=== PATIENT | female | born 1950 | race Caucasian/White ===

== ENCOUNTER 2016-09-01 22:36 | Inpatient (IN) | payer MEDICARE ==
--- NOTE | ~2016-09-01 | CR72 ---
[facility] A Service of [facility] RADIOLOGY TEXT RESULTS PATIENT: ZARI MTZ LOCATION: [address] : [birth year] UNIT #: [id number] AGE: [address]: Claire Santiago MD SEX: F ORDER DR: [id number] [place] [id number] [facility]. [place], [place] [address] [id number] I MR#: [id number] Acc #: [id number] NAME: ZARI MTZ : 1950 SEX: F STUDY DATE/TIME: 09/05/2016 8:09 UNIT: [facility] ROOM: [facility] STUDY DESCRIPTION: CR Chest Single View Portable Attending Physician: Claire Santiago M.D. Ordering Physician: Physician Non-Staff Primary Care Physician: Juarez Jaffe M.D. MEDICAL IMAGING REPORT This report is preliminary unless electronic signature is present EXAM Portable chest HISTORY Increased shortness of air for three days. DATE: 09/05 COMPARISON: 09/04 FINDINGS A portable view of the chest was obtained. The heart size is within normal limits. There is some minimal atelectasis in the right lower lobe. The central venous catheter is stable. Left lung is clear. IMPRESSION There is some new minimal density in the right lower lobe suggesting atelectasis or infiltrate, otherwise no active disease. Dictated by... Mookie Black M.D. THIS IS AN ELECTRONICALLY VERIFIED REPORT Mookie Black M.D. at 09/05/2016 3:38 PM LEXI/kandace TD: 09/05/2016 08:40 JOB #: [id number] MEDICAL IMAGING REPORT [facility] A Service [facility] RADIOLOGY TEXT RESULTS PATIENT: ZARI MTZ LOCATION: [address] : [birth year] UNIT #: [id number] AGE: [address]: Claire Santiago MD SEX: F ORDER DR: Page 1 of 1 COPY
--- NOTE | ~2016-09-01 | CR72 ---
[facility] A Service of [facility] RADIOLOGY TEXT RESULTS PATIENT: ZARI MTZ LOCATION: [place] [address] : [birth year] UNIT #: [id number] AGE: [address]: Nataliia Petty MD SEX: F ORDER DR: [id number] [facility] [address] [place], [place] [address] [id number] I MR#: [id number] Acc #: [id number] NAME: ZARI MTZ. : 1950 SEX: F STUDY DATE/TIME: 09/03/2016 UNIT: [facility] ROOM: [facility] STUDY DESCRIPTION: CR Chest Single View Portable Attending Physician: Nataliia Petty M.D. Ordering Physician: Jenny Granda M.D. Primary Care Physician: Juarez Jaffe M.D. MEDICAL IMAGING REPORT This report is preliminary unless electronic signature is present EXAM Portable chest 09/03 at 03:22 INDICATIONS Respiratory failure. Ventilator patient. Shortness of air. FINDINGS AP portable chest compared with 09/02/2016. ET tube and right IJ line are in good position. There are developing infiltrates at the left base which could reflect pneumonia. The right lung is clear. No pneumothorax identified. Dictated by... Will Nelson Jr., M.D. THIS IS AN ELECTRONICALLY VERIFIED REPORT Will Nelson Jr., M.D. at 09/03/2016 5:19 PM RULA/kandace TD: 09/03/2016 10:47 JOB #: [id number] MEDICAL IMAGING REPORT Page 1 of 1 COPY
--- NOTE | ~2016-09-01 | DS ---
Unit #: [id number] #: [id number] Patient: ZARI MTZ [id number] [address] [place], [place] [address] [id number] I MR#: [id number] NAME: ZARI MTZ. ROOM: 563 Age: 66 Sex: F Admission Date: 09/02/2016 : 1950 Discharge Date: 09/08/2016 Attending Physician: Claire Santiago M.D. Primary Care Physician: Juarez Jaffe M.D. DISCHARGE SUMMARY REASON FOR ADMISSION Acute hypoxic respiratory failure. HISTORY OF PRESENT ILLNESS/HOSPITAL COURSE Please see H and P for details of initial part of hospital stay secondary to acute hypoxic respiratory failure as well as hypotension and criteria was met for sepsis on admission. Patient was placed in ICU secondary to compromised respiratory status. Patient was subsequently intubated and placed on ventilator and consultation was placed to Dr. Granda and lacy for ongoing management in regards to pulmonary services. Through ICU course, patient was gradually weaned off the ventilator. She was transitioned to BiPAP and subsequently transitioned to O2 via nasal cannula. From a respiratory standpoint, her antibiotics were later discontinued and her IV Solu-Medrol was transitioned to p.o. prednisone. It was noted that patient did have elevated troponin level, peak level at 1.38. Therefore, consultation was placed to Dr. Vega and lacy for evaluation. Patient underwent 2D echocardiogram showing systolic heart failure with ejection fraction of 40% to 45%. Recommendation was made, secondary to elevated troponin as well as systolic heart failure on 2D echocardiogram, for cardiac catheterization. Therefore, patient underwent cardiac catheterization by Dr. Vega on 09/05/2016 showing final results with stress cardiomyopathy, systolic ejection fraction close to 35%. There was no hemodynamically significant fixed stenosis which was noted. 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 Recommendation was made from a cardiac standpoint for the patient to be started on lisinopril diuretics and nonselective beta-blockers. She will be placed on salt and fluid-restricted diet. Both pulmonary services and cardiology services have now stated the patient is stable for discharge. Physical and occupational therapy services have been recommendation, secondary to prolonged hospital stay, for transition to rehab. Appropriate arrangements will be made for the patient to be transitioned to rehab later this afternoon. Patient should follow up with pulmonary services in 2-3 weeks for an outpatient sleep study evaluation. Unit #: [id number] #: [id number] Patient: ZARI MTZ Patient should follow up with Dr. Vega of cardiology services on December 04 at 12:30 for echocardiogram as well as appointment at 1:15. At time of discharge, patient has had decreased potassium over the past 24-48 hours. She will be started on 20 mEq of potassium b.i.d. She should have a repeat BMP to assess her potassium level within 1-2 days. Patient does have a prior history of alcohol abuse. She was counseled while she was here and there were no exhibited symptoms of DTs while she was admitted here in the hospital. FINAL DISCHARGE DIAGNOSES 1. Acute hypoxic respiratory failure. 2. Likely chronic obstructive pulmonary disease. 3. Alcohol abuse. 4. Systolic heart failure, takotsubo cardiomyopathy. 5. Hypertension. 6. Obesity. 7. Hyperlipidemia. FINAL DISCHARGE MEDICATIONS 1. Protonix 40 mg p.o. every day. 2. Aldactone 25 mg p.o. every day. 3. Aspirin 81 mg daily. 4. Lisinopril 20 mg p.o. b.i.d. 5. Lipitor 10 mg p.o. q.h.s. 6. Lasix 40 mg p.o. b.i.d. 7. Senokot S 1 tablet p.o. b.i.d. 8. Coreg 12.5 mg p.o. b.i.d. 9. Prednisone 40 mg p.o. every day x5 days. 10. DuoNeb aerosol solution q.6 hours scheduled. 11. Albuterol aerosol solution q.2 p.r.n. 12. K-Dur 20 mEq p.o. b.i.d. DISCHARGE CONDITION Stable. DISCHARGE DISPOSITION Rehab. Dictated by... Titus Vazquez/parker TD: 09/08/2016 10:33 JOB #: [id number] Unit #: [id number] #: [id number] Patient: ZARI MTZ DISCHARGE SUMMARY Page 1 of 1 X Claire Santiago MD DISCHARGE SUMMARY
--- NOTE | ~2016-09-01 | EKG ---
PATIENT: ZARI MTZ UNIT #: [id number] Ventricular Rate: 107 BPM Atrial Rate: 107 BPM P-R Interval: 136 ms QRS Duration: 86 ms Q-T Interval: 354 ms QTC Calculation(Bezet): 472 ms P [place]: 65 degrees Calculated R [place]: 49 degrees Calculated T [place]: 65 degrees Diagnosis Line: Sinus tachycardia with Fusion complexes Diagnosis Line: Possible Left atrial enlargement Diagnosis Line: T wave abnormality, consider anterior ischemia Diagnosis Line: Abnormal ECG Diagnosis Line: When compared with ECG of 03-SEP-2016 06:02, Diagnosis Line: Fusion complexes are now Present Diagnosis Line: T wave inversion less evident in Anterolateral Diagnosis Line: leads Diagnosis Line: QT has shortened Diagnosis Line: Confirmed by ADOLFO FITZPATRICK MD ([id number]) on Diagnosis Line: 09/04/2016 9:44:59 PM INTERPRETING MD: MARY
--- NOTE | ~2016-09-01 | CR72 ---
[facility] A Service of [facility] RADIOLOGY TEXT RESULTS PATIENT: ZARI MTZ LOCATION: [place] [address] : [birth year] UNIT #: [id number] AGE: [address]: Claire Santiago MD SEX: F ORDER DR: [id number] [facility] [address] [place], [place] [address] [id number] I MR#: [id number] Acc #: [id number] NAME: ZARI MTZ. : 1950 SEX: F STUDY DATE/TIME: 09/04/2016 05:18 UNIT: [facility] ROOM: [facility] STUDY DESCRIPTION: CR Chest Single View Portable Attending Physician: Nataliia Petty M.D. Ordering Physician: Jenny Granda M.D. Primary Care Physician: Juarez Jaffe M.D. MEDICAL IMAGING REPORT This report is preliminary unless electronic signature is present EXAM Portable chest 09/04 at 05:18 INDICATIONS Respiratory failure. Ventilator patient. FINDINGS AP portable chest compared with 09/03/2016. Cardiomegaly is stable. There is atherosclerotic disease in the aorta. Right IJ line in the SVC. Patient has been extubated, and feeding tube has been removed. There is emphysema. There is some minimal residual atelectasis or infiltrate in the left base. No pneumothorax. Dictated by... Will Nelson Jr., M.D. THIS IS AN ELECTRONICALLY VERIFIED REPORT Will Nelson Jr., M.D. at 09/05/2016 5:53 AM RULA/yesenia TD: 09/04/2016 08:08 JOB #: [id number] MEDICAL IMAGING REPORT Page 1 of 1 COPY
--- NOTE | ~2016-09-01 | EKG ---
PATIENT: ZARI MTZ UNIT #: [id number] Ventricular Rate: 77 BPM Atrial Rate: 77 BPM P-R Interval: 164 ms QRS Duration: 90 ms Q-T Interval: 420 ms QTC Calculation(Bezet): 475 ms P [place]: 74 degrees Calculated R [place]: 63 degrees Calculated T [place]: 75 degrees Diagnosis Line: Normal sinus rhythm Diagnosis Line: Normal ECG Diagnosis Line: When compared with ECG of 02-SEP-2016 01:05, Diagnosis Line: No significant change was found Diagnosis Line: Confirmed by ADOLFO FITZPATRICK MD ([id number]) on Diagnosis Line: 09/03/2016 10:58:05 PM INTERPRETING MD: MARY
--- NOTE | ~2016-09-01 | CR71 ---
[facility] A Service of [facility] RADIOLOGY TEXT RESULTS PATIENT: ZARI MTZ LOCATION: [place] [address] : [birth year] UNIT #: [id number] AGE: [address]: Nataliia Petty MD SEX: F ORDER DR: [id number] [facility] [address] [facility]. [place], [place] [address] [id number] I MR#: [id number] Acc #: [id number] NAME: ZARI MTZ. : 1950 SEX: F STUDY DATE/TIME: 09/02/2016 9:42 UNIT: [facility] ROOM: [facility] STUDY DESCRIPTION: CR Chest Single View Attending Physician: Nataliia Petty M.D. Ordering Physician: Nataliia Petty M.D. Primary Care Physician: Juarez Jaffe M.D. MEDICAL IMAGING REPORT This report is preliminary unless electronic signature is present EXAM Portable chest INDICATIONS Central line placement today. Comparison with earlier today. FINDINGS There is a new right IJ central venous catheter with tip projecting over the mid SVC. There is no evidence for pneumothorax. An NG tube has been placed. The ET tube is stable. There are increasing interstitial opacities in the lungs. IMPRESSION 1. Right IJ central venous catheter tip projects over the mid SVC without evidence for pneumothorax. 2. Increasing interstitial opacities. Dictated by... Petey Mendoza M.D. THIS IS AN ELECTRONICALLY VERIFIED REPORT Petey Mendoza M.D. at 09/03/2016 2:19 PM ARS/psc TD: 09/02/2016 23:16 JOB #: [id number] MEDICAL IMAGING REPORT Page 1 of 1 COPY
--- NOTE | ~2016-09-01 | HP ---
Unit #: [id number] #: [id number] Patient: ZARI MTZ [id number] [address] [place], [place] [address] [id number] I MR#: [id number] NAME: ZARI MTZ. ROOM: [facility] Age: 66 Sex: F Admission Date: 09/02/2016 : 1950 Attending Physician: Nataliia Petty M.D. Primary Care Physician: Juarez Jaffe M.D. HISTORY AND PHYSICAL REASON FOR ADMISSION Acute hypoxic respiratory failure. HISTORY OF PRESENT ILLNESS Patient is a 66-year-old female on whom I have elicited the majority of this history, as well as review of systems from chart review, as well as discussion with other physicians as currently no family members are patient and patient is currently sedated and placed on ventilator management. Patient has already been evaluated by Dr. Granda of pulmonary services. Apparently, patient had had a several day history of worsening shortness of breath approximately 72 hours. She was seen and evaluated in the emergency room and had apparently run out of her routine medications albuterol at home. While was in the emergency room, she acutely decompensated. She was placed on BiPAP, and subsequently she further decompensated. The decision was made for an (1) tube to be placed, and subsequently patient was placed on sedation in the ICU where I am currently evaluating. PAST MEDICAL HISTORY 1. Chronic obstructive pulmonary disease. 2. Hyperlipidemia. 3. Asthma. PAST SURGICAL HISTORY None per report. HOME MEDICATIONS 1. Tylox. 2. Atenolol. 3. Zestoretic. 4. Simvastatin. 5. Ventolin. ALLERGIES Codeine. FAMILY HISTORY Unobtainable. Per chart review, it appears to be negative and noncontributory. SOCIAL HISTORY Positive tobacco use noted. Negative illicit drug use and negative Unit #: [id number] #: [id number] Patient: ZARI MTZ alcohol use noted. REVIEW OF SYSTEMS Limited secondary to current condition. Please see above. Twelve points otherwise unremarkable except for those positive and noted in the History of Present Illness. PHYSICAL EXAMINATION VITAL SIGNS: Temperature 97.1, pulse 137, respiratory rate 22, and blood pressure 181/118. Vitals noted on time of admission. GENERAL APPEARANCE: A 66-year-old female sedated on ventilator support. HEAD: Atraumatic. NECK: Supple. No JVD, no carotid bruits. CARDIOVASCULAR: S1 and S2 audible with a regular rate and rhythm. RESPIRATORY: Poor air exchanged noted bilaterally. ABDOMEN: She has (2) noted but does not appear to be tender. LOWER EXTREMITIES: No evidence of any lower extremity edema. NEUROLOGIC: Patient is sedated. ER COURSE The patient received Solu-Medrol, magnesium, normal saline, Ativan, epinephrine, and ketamine, and subsequently was intubated. DIAGNOSTIC STUDIES INITIAL LABORATORY: Elevated lactic acid level of 2.8 subsequently rising to 5.1. Initial ABG does show a PCO2 of 50 and PO2 of 86. Initial CBC shows a white count of 18,100. Through laboratory studies also noted now is a troponin level of 1.5. Blood cultures have been negative at 24 hours. Influenza swab is negative. CMP shows a sodium of 123, blood glucose of 184, and bicarb of 16. INITIAL ADMISSION DIAGNOSES 1. Acute hypoxic respiratory failure. 2. Chronic obstructive pulmonary disease versus asthma exacerbation. 3. Sepsis present on admission. 4. Elevated lactic acid level. 5. Non-ST segment elevation myocardial infarction. 6. Hyponatremia. 7. Dyspnea. 8. Hyperlipidemia history. PLAN Admission to ICU. Consultation placed to metaphysician already. Ventilator support. Consultation placed to Cardiology for elevated troponin. Nephrology to see secondary to hyponatremia. Routine laboratory studies. Once further family members arrive, further details will be ascertained in regards to overall conditions prior to admission. Antibiotics have already been written for by Dr. Granda. Further hospital course to follow. Dictated by Titus Vazquez/jack TD: 09/02/2016 16:18 JOB #: [id number] Unit #: [id number] #: [id number] Patient: ZARI MTZ HISTORY AND PHYSICAL Page 1 of 1 X Claire Santiago MD HISTORY AND PHYSICAL
--- NOTE | ~2016-09-01 | EKG ---
PATIENT: ZARI MTZ UNIT #: [id number] Ventricular Rate: 111 BPM Atrial Rate: 111 BPM P-R Interval: 158 ms QRS Duration: 96 ms Q-T Interval: 366 ms QTC Calculation(Bezet): 497 ms P [place]: 82 degrees Calculated R [place]: 88 degrees Calculated T [place]: 70 degrees Diagnosis Line: Sinus tachycardia Diagnosis Line: Possible Left atrial enlargement Diagnosis Line: Borderline ECG Diagnosis Line: No previous ECGs available Diagnosis Line: Confirmed by IVON GEE MD ([id number]) on 09/03/2016 Diagnosis Line: 5:41:46 AM INTERPRETING MD: GERARD PATTERSON
--- NOTE | ~2016-09-01 | EKG ---
PATIENT: ZARI MTZ UNIT #: [id number] Ventricular Rate: 81 BPM Atrial Rate: 81 BPM P-R Interval: 160 ms QRS Duration: 92 ms Q-T Interval: 500 ms QTC Calculation(Bezet): 580 ms P [place]: 73 degrees Calculated R [place]: 56 degrees Calculated T [place]: 159 degrees Diagnosis Line: Normal sinus rhythm Diagnosis Line: T wave abnormality, consider anterolateral Diagnosis Line: ischemia Diagnosis Line: Prolonged QT Diagnosis Line: Abnormal ECG Diagnosis Line: When compared with ECG of 02-SEP-2016 14:27, Diagnosis Line: (unconfirmed) Diagnosis Line: Nonspecific T wave abnormality now evident in Diagnosis Line: Inferior leads Diagnosis Line: T wave inversion more evident in Anterolateral Diagnosis Line: leads Diagnosis Line: QT has lengthened Diagnosis Line: Confirmed by ADOLFO FITZPATRICK MD ([id number]) on Diagnosis Line: 09/03/2016 11:00:06 PM INTERPRETING MD: MARY
--- NOTE | ~2016-09-01 | FU ---
[facility] DATE: 09/06/16 Patient: ZARI MTZ Physician: JUAQUIN Address: [address] [place] [address] RD Room/Bed: [address], Zip: [place] [address] Admit Date: 09/02/16 Date of : [birth year] Height: 5 4 Weight: 201 91.5 NUTRITION MONITORING/FOLLOW-UP: Reason: PT SEEN FOR FOLLOW-UP DX: RESPIRATORY FAILURE Anthropometrics: 5'4", WT: 201# (91 KG), BMI: 34.5 -ADMIT WEIGHT: 211# (96 KG) Labs: GLU: 125, CREAT: 0.5, ALB: 3.4, K+:3.3 Meds: FUROSEMIDE, SENOKOT, MAG-AL, PHENERGAN, SOLU-MEDROL, IV LEVAQUIN, PROTONIX, LIPITOR, NACL I&O's: [id number] Skin: NO KNOWN SKIN ISSUES Estimated Nutrition Needs: [id number] KCAL 86-106 G PRO Assessment: CHART REVIEWED AND EVENTS NOTED. PT SEEN FOR FOLLOW-UP. PT SITTING IN CHAIR AT TIME OF VISIT REPORTING APPETITE SLOWLY IMPROVING, NOTING NO C/O N/V/D. PT REPORTS TAKING BITES OF FOODS THIS AM FOR BREAKFAST. PER RN, FAMILY BRINGS FOOD FROM OUTSIDE. THIS RD ENCOURAGED SMALL FREQUENT MEALS + SUPPLEMENT INTAKE, PT AGREED TO ENSURE ENLIVE SHAKES BID, RD TO ORDER. PT REPORTED NO DIET QUESTIONS AT THIS TIME. RD TO CONTINUE TO FOLLOW. PLANS IN PLACE FOR PT TO TRANSFER TO TELEMETRY. Dx: INADEQUATE ENERGY INTAKE R/T INTUBATION AEB NPO, NEED FOR EN.-RESOLVED STAGE 1 OBESE R/T PMH, LIFESTYLE, DIET AEB BMI OF 34.-ACTIVE NEW DX: INADEQUATE ENERGY INTAKE R/T DECREASED APPETITE AEB PT REPORT TAKING BITES OF BREAKFAST THIS AM. Intervention: 1. REGULAR + 1800 ML FLUID RESTRICTION 2. ENSURE ENLIVE SHAKES BID Monitoring, Evaluation and Goals: 1. ORAL INTAKE; CONSUME >50% OF MEALS AND SUPPLEMENTS W/NO C/O N/V/D-ACTIVE/IN PROGRESS 2. WEIGHTS; PROMOTE GRADUAL WEIGHT LOSS-ACTIVE/IN PROGRESS 3. LABS; WNL-ACTIVE/IN PROGRESS MONITOR: [facility] DATE: 09/06/16 Patient: ZARI Cobian BIBI Physician: JUAQUIN Address: [address] [facility] Room/Bed: [address], Zip: [place] [address] Admit Date: 09/02/16 Date of : [birth year] Height: 5 4 Weight: 201 91.5 -PO INTAKE/APPETITE -WEIGHTS -SUPPLEMENT INTAKE Recommendations: 1. PLEASE ORDER CHOCOLATE OR STRAWBERRY ENSURE ENLIVE SHAKES BID W/MEALS 2. APPRECIATE FAMILY AND STAFF TO ENCOURAGE ADEQUATE PO INTAKE 3. CONSIDER ADDING 6 SMALL MEALS TO CURRENT DIET ORDER TO BETTER FACILITATE PO INTAKE 4. ONCE PT'S APPETITE IMPROVES, RECOMMEND TO CHANGE CURRENT DIET ORDER TO HH 2' PMH, HIGH BMI RD WILL F/U PER PROTOCOL PT IS MILDLY COMPROMISED Respectfully, JULIO CÉSAR CAMPBELL MS, RD, LD Food and Nutritional Services [facility] cc: client file
--- NOTE | ~2016-09-01 | CR7 ---
[facility] A Service of [facility] RADIOLOGY TEXT RESULTS PATIENT: ZARI MTZ LOCATION: [place] [id number] : [birth year] UNIT #: [id number] AGE: [address]: Nataliia Petty MD SEX: F ORDER DR: [id number] [facility] [address] [place], [place] [address] [id number] I MR#: [id number] Acc #: [id number] NAME: ZARI MTZ. : 1950 SEX: F STUDY DATE/TIME: 09/02/2016 04:58 UNIT: [facility] ROOM: [facility] STUDY DESCRIPTION: CR Abdomen Single AP View Attending Physician: Nataliia Petty M.D. Ordering Physician: Nataliia Petty M.D. Primary Care Physician: Juarez Jaffe M.D. MEDICAL IMAGING REPORT This report is preliminary unless electronic signature is present EXAM KUB, 09/02/2016 at 04:58 INDICATION Feeding tube placement today. FINDINGS Supine view of the abdomen was obtained. Tip of a flexible feeding tube is positioned in the antrum of the stomach. Bowel gas pattern is within normal limits. Dictated by... Will Nelson Jr., M.D. THIS IS AN ELECTRONICALLY VERIFIED REPORT Will Nelson Jr., M.D. at 09/03/2016 5:23 AM RULA/faye TD: 09/02/2016 21:36 JOB #: [id number] MEDICAL IMAGING REPORT Page 1 of 1 COPY
--- NOTE | ~2016-09-01 | CR72 ---
[facility] A Service of [facility] RADIOLOGY TEXT RESULTS PATIENT: ZARI MTZ LOCATION: [place] [address] : [birth year] UNIT #: [id number] AGE: [address]: Claire Santiago MD SEX: F ORDER DR: [id number] [facility] [address] [facility]. [place], [place] [address] [id number] I MR#: [id number] Acc #: [id number] NAME: ZARI MTZ. : 1950 SEX: F STUDY DATE/TIME: 09/06/2016 04:29 UNIT: [facility] ROOM: [facility] STUDY DESCRIPTION: CR Chest Single View Portable Attending Physician: Claire Santiago M.D. Ordering Physician: Jenny Granda M.D. Primary Care Physician: Juarez Jaffe M.D. MEDICAL IMAGING REPORT This report is preliminary unless electronic signature is present EXAM Portable chest 09/06/2016 04:29 INDICATION Respiratory failure. Ventilator patient. FINDINGS AP portable chest is compared with 09/05/2016. Right IJ line in good position. Cardiomegaly stable. There is some mild residual infiltrate or atelectasis at the right base. There may be a trace amount of right pleural fluid. The left lung is clear. There is no pneumothorax. Dictated by... Will Nelson Jr., M.D. THIS IS AN ELECTRONICALLY VERIFIED REPORT Will Nelson Jr., M.D. at 09/06/2016 10:14 PM RULA/mj TD: 09/06/2016 07:16 JOB #: [id number] MEDICAL IMAGING REPORT Page 1 of 1 COPY
--- NOTE | ~2016-09-01 | CO ---
Unit #: [id number] #: [id number] Patient: ZARI MTZ [id number] [address] [place], [place] [address] [id number] I MR#: [id number] NAME: ZARI MTZ ROOM: [facility] Age: 66 Sex: F Admission Date: 09/02/2016 : 1950 Attending Physician: Nataliia Petty M.D. Primary Care Physician: Juarez Jaffe M.D. CONSULTATION REPORT REASON FOR CONSULTATION Critical care management. CHIEF COMPLAINT Shortness of breath. HISTORY OF PRESENT ILLNESS The patient basically is a 66-year-old female with a past medical history significant for COPD and history of respiratory failure, who came in with a complaint of cough, shortness of breath and increasing sputum production for a few days and was getting worse. Admitted and did not tolerate oxygen therapy and was required to be intubated. Currently on a ventilator, hypotensive and started on pressors. I am seeing the patient at the bedside. REVIEW OF SYSTEMS Unobtainable. PAST MEDICAL HISTORY Significant for COPD. SOCIAL HISTORY Positive smoking. No alcohol, no drug abuse. FAMILY HISTORY None as per records. PHYSICAL EXAMINATION VITAL SIGNS: Temperature 98, pulse 87, respirations 12, blood pressure 110/70. NEUROLOGICAL: She is sedated. CVS: S1+ S2. RESPIRATION: Bilateral air entry, bilateral mild rhonchi. GI: Nontender, soft. Bowel sounds positive. EXTREMITIES: No edema. SKIN: No rashes, no ulcers. LYMPHATIC: No lymphadenopathy. DIAGNOSTIC STUDIES IMAGING: Chest x-ray showed some right and left lower lobe patchy infiltrates. LABORATORY: Blood gas - pH of 7.37, pCO2 is 33, pO2 is 249. Unit #: [id number] #: [id number] Patient: ZARI MTZ BUN is 9, creatinine 0.5, sodium is 121, potassium is 3.6. White count is 18, hemoglobin 13, hematocrit 39, platelet count is 388. ASSESSMENT AND PLAN 1. Acute hypoxic respiratory failure, likely pneumonia. 2. Chronic obstructive pulmonary disease exacerbation. 3. Severe hyponatremia. 4. Hypovolemia. 5. Lactic acidosis. At this point, plan is to admit the patient. Continue ventilator support, likely bronchoscopy. Order procalcitonin level. Aggressive hydration, wean pressors. GI and DVT prophylaxis, IV steroids, broaden IV antibiotic coverage. The patient will be closely monitored. Please see orders for detailed plan. Thank you very much for this consultation. We will follow the patient along with you very closely. Dictated by... Titus Price TD: 09/02/2016 11:08 JOB #: [id number] CONSULTATION REPORT Page 1 of 1 X Jenny Granda MD X CONSULTATION REPORT
--- NOTE | ~2016-09-01 | A ---
[facility] Nutrition Therapy DATE: 09/03/16 Patient: ZARI MTZ Physician: JUAQUIN Address: [address] [place] [address] RD Room/Bed: [address], Zip: [place] [address] Admit Date: 09/02/16 Date of : [birth year] Height: 5 4 Weight: 211 96 NUTRITIONAL ASSESSMENT: REASON: Enteral nutrition recommendations, intubated Admitting Dx: 66 y/o female admitted with acute SD and respiratory failure PMH: ETOH abuse per nursing however this is not confirmed in H&P, COPD, HLD, asthma Anthropometrics: Ht: 64", Wt: 96 kg, BMI: 34 (Stage I obese) Labs: Na 128, Glucose 184, Triglycerides 189 Meds: PPI, Levophed, Solu-Medrol, Versed/Fentanyl, IV Levaquin I/O & Bowel function: Last BM unknown Skin Integrity: 1-2 + edema noted, no other skin issues documented Estimated Nutrition Needs: 5281-5306 kcals per day (15-20 kcals/kg) 86-106 g protein per day (0.9-1.1 g/kg) Fluids per MD Assessment: Chart reviewed, events noted. See admitting dx and PMH as stated above. Sedation off earlier this morning for attempted extubation, however the patient failed and remains intubated, NPO. DHT in place, see EN recs below. Patient is not appropriate for RD interview at this time, will follow hospital course. Dx: 1) Inadequate energy intake r/t intubation AEB NPO, need for EN. 2) Stage I obese r/t PMH, lifestyle, diet AEB BMI 34. Intervention: Begin EN Monitoring, Evaluation and Goals: 1. EN consistent with estimated nutrition needs. 2. Improvement in labs (glucose, Na, triglycerides). 3. Once medically stable; promote a gradual weight loss towards a healthy BMI range. Monitor: Per protocol, criteria to determine if above goals met Recommendations: [facility] Nutrition Therapy DATE: 09/03/16 Patient: ZARI MTZ Physician: JUAQUIN Address: [address] [place] [address] RD Room/Bed: [address], Zip: [place] [address] Admit Date: 09/02/16 Date of : [birth year] Height: 5 4 Weight: 211 96 1. Once medically feasible start enteral nutrition through DHT with Jevity 1.5 @ 20 ml/hr and increase by 10 ml q 6 hours until goal rate of 50 ml/hr is reached. Please order Prostat and give 30 ml per tube daily to help meet protein needs. This nutrition regimen will provide 1900 kcals, 92 g protein and 912 ml water. Once at goal rate add free water flushes per MD noting hyponatremia. 2. Consider adding SSI noting hyperglycemia. 3. If extubated advance to healthy heart diet as tolerated due to clinical diagnosis and to promote a gradual weight loss towards a healthy BMI range. Consult RD if diet education is desired. Will follow hospital course Moderate-severe nutrition risk Respectfully, Neha Love, RAJWINDER, LD [employer] [facility] cc: client file
--- NOTE | ~2016-09-01 | CO ---
Unit #: [id number] #: [id number] Patient: ZARI MTZ [id number] [address] [place], [place] [address] [id number] I MR#: [id number] NAME: ZARI MTZ ROOM: [facility] Age: 66 Sex: F Admission Date: 09/02/2016 : 1950 Attending Physician: Claire Santiago M.D. Primary Care Physician: Juarez Jaffe M.D. Consultation Date: 09/02/2016 CONSULTATION REPORT PRIMARY CARE DOCTOR Juarez Jaffe M.D. REASON FOR CONSULTATION Elevated troponin. HISTORY OF PRESENT ILLNESS This is a 66-year-old white female, who has known history of hypertension, hyperlipidemia, COPD, obstructive sleep apnea. She is also alcoholic and quit smoking about five months ago, who came to the emergency room with acute respiratory hypoxic failure. She required intubation. Most information was obtained during this interview and exam and was obtained from the medical records, chart, and the family at bedside. According to information, the patient had a several day history of worsening shortness of breath. Family reports that patient was hospitalized at [facility] about three months ago with exacerbation of COPD and respiratory failure, was intubated, but they believe she was never seen by a microsoft office instructor at that time. Since her discharge, she has been back to work. She works in [employer] and she is fairly active, but the daughter said that she has been seems like more fatigued in the last couple of weeks, also complaining of increased shortness of breath and she has had persistent cough and sounds congested. Her daughter went to see her the day of admission. She says she can tell she appeared to be gasping for breath. She put her on her car, she drove her to the hospital for further evaluation and management. There was no indication from the daughter and she reports that the patient ever said to her that she was having any chest pain; pain in her neck, bilateral jaws, shoulders, arms, or elbow. There is no indication of any palpitations. There is no dizziness, presyncope or syncope. She denied any fever or chills. In the emergency room, the patient's blood pressure was 181/118, respirations 22, heart rate was 137, temperature is 97.1 and O2 saturation was 87% that was on room air. The patient's chest x-ray showed COPD. Her EKG shows normal sinus rhythm. She does have some nonspecific ST-T wave abnormalities in the inferior leads. Her WBCs were 18. Her sodium was 121, potassium 3.6, hemoglobin 12.5. Troponin initially was 0.05 and later this afternoon is 1.50. BNP is 303. Lactic acid is 2.8 and later today it is 6.7. Her ABGs, pH of 7.327, pCO2 50. The patient was intubated in the emergency room. As mentioned, her troponin is elevated to 1.50. Cardiology has been consulted to assist with evaluation and management. Unit #: [id number] #: [id number] Patient: ZARI MTZ PAST MEDICAL HISTORY 1. Hypertension. 2. Hyperlipidemia. 3. COPD. 4. Obstructive sleep apnea, but noncompliant. 5. Nicotine abuse, quit smoking five months ago. 6. Alcohol abuse, drinks over six packs of beer a day, may be some other hard liquor. 7. Recent hospitalization at [facility] about three months ago for acute respiratory failure, was intubated. 8. No stress or cardiac cath in the past. PAST SURGICAL HISTORY None. HOME MEDICATIONS 1. Tenormin 25 mg p.o. b.i.d. 2. Zestoretic 20/25 one p.o. daily. 3. Simvastatin 20 mg p.o. daily. 4. Ventolin 1 puff inhalation every 4 hours p.r.n. ALLERGIES Codeine. SOCIAL HISTORY The patient lives in apartment by herself. 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 She has been a , but does drink several beers a day and the daughter suspects she may even be drinking some hard liquor. No illicit drug abuse. FAMILY HISTORY No known coronary artery disease in her immediate family members that the daughter know. REVIEW OF SYSTEMS See details in HPI. PHYSICAL EXAMINATION GENERAL: On exam, Jb is a 66-year-old white female. She is intubated and sedated. VITAL SIGNS: Currently blood pressure is 105/57, later 98/51, heart rate is 98, respirations are 24, temperature is 99.1, O2 saturations 99% on the ventilator. NECK: Trachea midline. No thyromegaly or lymphadenopathy. Normal carotid upstrokes. No jugular venous distention. HEART: S1, S2. Regular rate and rhythm. No clicks, murmurs, or rubs. LUNGS: Diminished and some scattered rhonchi and wheezes. ABDOMEN: Obese, soft, nontender. EXTREMITIES: Pedal pulses are palpable. Trace pedal edema. DIAGNOSTIC STUDIES LABORATORY RESULTS: ABGs; pH is 7.376, pCO2 29.0, PO2 140 and O2 sats 98.0 that is on the ventilator. Glucose is 184, BUN 9, creatinine 0.9, EGFR is 67.1. Sodium 123, potassium 3.7, chloride 90, CO2 16, calcium is 8.8, AST 44, ALT 31, alkaline phosphatase is 62, bilirubin total 0.4, total protein 6.5 and albumin 3.9. INR is 1.0. WBC is 14.0, hemoglobin 12.5, hematocrit 37.0 and platelets is 327. Influenza A and B negative. Urinalysis pending. Blood cultures are pending. Cardiac enzymes, initial Unit #: [id number] #: [id number] Patient: ZARI MTZ set, CK-MB 6.2, troponin less than 0.05. Later cardiac enzymes, CK total is 111 with an MB of 13.6, percentage of MB 12.3, troponin 1.50 and later 1.84. BNP is 303. Lactic acid was initially 2.8, later 5.1 and 6.7. Alcohol level less than 5. PHOB 0.31. Chest x-ray shows mild cardiomegaly, no active disease. EKG shows a normal sinus rhythm, some nonspecific ST-T wave abnormalities in inferior and lateral leads later. T-wave inversion in V1 and V2. IMPRESSION 1. Acute on chronic hypoxic respiratory failure with exacerbation of chronic obstructive pulmonary disease. 2. Obstructive sleep apnea. 3. Elevated troponin. 4. Acute non-ST elevated myocardial infarction. 5. Hypertension. 6. Hyperlipidemia. 7. Recently quit smoking. 8. Alcohol abuse. 9. Hyponatremia. 10. Questionable sepsis. PLAN 1. Cardiology consult to assist with evaluation and management of a non-ST elevated CO. 2. The patient is on aspirin. We will start therapeutic dosing of Lovenox and also nitrate. 3. The patient's blood pressure is running 90 systolically and is on Levophed, so we will hold off on starting any beta-ramona at this time. 4. Continue to monitor cardiac enzymes and EKG. As mentioned, it was discussed with the family and there was no mention of any signs or symptoms of unstable angina, however, with her multiple risk factors, the patient will need a heart catheterization when she is stable. 5. Obtain a fasting lipid profile, TSH, and evaluate. 6. Pulmonary shipper is managing her acute hypoxic respiratory failure. 7. Patient will need some kind rehab or counseling for alcohol cessation. 8. Obtain records from [facility]. The latest H and P, discharge summary and if there was an echo. 9. Obtain a 2D echo to re-evaluate LV function and valves especially since this event. 10. Further recommendations pending per Dr. Vega. Thank you very much for allowing us to assist in her care. Dictated by... Urbano ArreolaPBookerRJuan Miguel. for Titus Craven/karina TD: 09/04/2016 12:41 JOB #: [id number] Unit #: [id number] #: [id number] Patient: ZARI MTZ CONSULTATION REPORT Page 1 [address] APRN CONSULTATION REPORT
--- NOTE | ~2016-09-01 | OR ---
Unit #: [id number] #: [id number] Patient: ZARI MTZ [id number] [address] [address] [id number] I MR#: [id number] NAME: ZARI MTZ. ROOM: [facility] Date of Procedure: 09/02/2016 Admission Date: 09/02/2016 Surgeon: Jenny Granda M.D. : 1950 Attending Physician: Nataliia Petty M.D. Primary Care Physician: Juarez Jaffe M.D. PROCEDURE OPERATIVE NOTE PROCEDURE Bronchoscopy. INDICATION Pneumonia. PREPROCEDURE DIAGNOSIS Pneumonia. POSTPROCEDURE DIAGNOSIS Pneumonia. DETAILS OF PROCEDURE After taking consent from the patient's family explaining the risks and benefits, the patient was placed in the appropriate position. Bronchoscope introduced through the endotracheal tube. Trachea was normal. Niecy was sharp. We examined right upper, right middle, right lower lobe, left upper lobe, lingula and left lower lobe. No endobronchial lesion was found. There were thick mucoid secretions in both lungs which were therapeutically suctioned. Then we did a bronchioalveolar lavage in the right and left lower lobe area with 100 mL saline in and 60 mL back. The patient tolerated the procedure very well. No complications happened. Dictated by... Titus Price/maximus TD: 09/02/2016 16:11 JOB #: [id number] Unit #: [id number] #: [id number] Patient: ZARI MTZ PROCEDURE OPERATIVE NOTE Page 1 of 1 X Jenny Granda MD PROCEDURE OPERATIVE NOTE
--- NOTE | ~2016-09-01 | CR72 ---
[facility] A Service of [facility] RADIOLOGY TEXT RESULTS PATIENT: ZARI MTZ LOCATION: [place] [address] : [birth year] UNIT #: [id number] AGE: [address]: Nataliia Petty MD SEX: F ORDER DR: [id number] [facility] [address] [place], [place] [address] [id number] I MR#: [id number] Acc #: [id number] NAME: ZARI MTZ. : 1950 SEX: F STUDY DATE/TIME: 09/02/2016 00:12 UNIT: [facility] ROOM: [facility] STUDY DESCRIPTION: CR Chest Single View Portable Attending Physician: Nataliia Petty M.D. Ordering Physician: Hung Xiao M.D. Primary Care Physician: Juarez Jaffe M.D. MEDICAL IMAGING REPORT This report is preliminary unless electronic signature is present EXAM Portable chest, 09/02 0012 hours INDICATIONS Intubation. Shortness of air for 3 days. History of asthma. FINDINGS AP portable chest is compared with 05/04/2016. Endotracheal tube is in good position in the woy-xl-nycqo trachea. Mild cardiomegaly is present. The lungs are clear. No pneumothorax. Old left posterior sixth rib fracture is present. IMPRESSION ET tube well positioned in the auj-fy-zjprs trachea. Mild cardiomegaly. No active disease. Dictated by... Will Nelson Jr., M.D. THIS IS AN ELECTRONICALLY VERIFIED REPORT Will Nelson Jr., M.D. at 09/02/2016 9:22 PM RULA/neema TD: 09/02/2016 17:11 JOB #: [id number] MEDICAL IMAGING REPORT Page 1 of 1 COPY
--- NOTE | ~2016-09-01 | EKG ---
PATIENT: ZARI MTZ UNIT #: [id number] Ventricular Rate: 118 BPM Atrial Rate: 118 BPM P-R Interval: 128 ms QRS Duration: 86 ms Q-T Interval: 322 ms QTC Calculation(Bezet): 451 ms P Nichols: 68 degrees Calculated R Nichols: 60 degrees Calculated T Nichols: 37 degrees Diagnosis Line: Sinus tachycardia with frequent Premature Diagnosis Line: ventricular complexes Diagnosis Line: Nonspecific T wave abnormality Diagnosis Line: Abnormal ECG Diagnosis Line: When compared with ECG of 04-SEP-2016 06:09, Diagnosis Line: Fusion complexes are no longer Present Diagnosis Line: Premature ventricular complexes are now Present Diagnosis Line: Nonspecific T wave abnormality has replaced Diagnosis Line: inverted T waves in Anterior leads Diagnosis Line: Confirmed by IVON GEE MD ([id number]) on 09/05/2016 Diagnosis Line: 11:05:33 PM INTERPRETING MD: GERARD PATTERSON
[~2016-09-01 22:36] MED LIST: TYLOX1 CAP 5/50 PO
[2016-09-01 23:00] LABS: ARTERIAL BLD GAS O2 SATURATION 94.6 % (90.0-100.0); ARTERIAL BLOOD GAS CARBOXY HB 0.9 %sat (0.0-9.0); ARTERIAL BLOOD GAS HCO3 26.1 mmol/L; ARTERIAL BLOOD GAS PO2 86.4 mmHg (80.0-100); ARTERIAL BLOOD GAS pH 7.327 (7.350-7.450)
[2016-09-01 23:01] LABS: ARTERIAL BLOOD GAS ALLEN TEST NORMAL; ARTERIAL BLOOD GAS ART SITE LEFT RADIAL; ARTERIAL BLOOD GAS DELIVERY NASAL CANNULA; ARTERIAL DRAW? YES
[2016-09-01 23:12] LABS: POC - CKMB 6.2 ng/mL (0.0-7.9); POC - TROPONIN <0.05 ng/mL (<=0.05)
[2016-09-01 23:14] LABS: BASOPHIL# 0.2 X10e3 (0-0.3); EOSINOPHIL# 1.2 X10e3 (0-0.7); EOSINOPHIL% 6.7 % (0.0-7.0); HEMATOCRIT 39.3 % (35.0-45.0); HEMOGLOBIN 13.4 gm/dL (12.0-16.0); LYMPHOCYTE# 4.9 X10e3 (1.0-3.5); LYMPHOCYTE% 26.8 % (17.0-45.0); MEAN CELL VOLUME 89.4 FL (83-96); MEAN CORPUSCULAR HEMOGLOBIN 30.5 PG (28-34); MEAN CORPUSCULAR HGB CONC 34.1 g/dL (30-36); MEAN PLATELET VOLUME 6.4 FL (6.5-11.5); MONOCYTE# 1.8 X10e3 (0-1.0); MONOCYTE% 9.8 % (3.0-12.0); NEUTROPHIL# 10.1 X10e3 (1.5-7.1); NEUTROPHIL% 55.7 % (40-75); PLATELET COUNT 388 X10e3 (140-420); RED CELL DISTRIBUTION WIDTH 12.8 % (11.0-15.5); WHITE BLOOD COUNT 18.1 X10e3 (4.0-10.5)
[2016-09-01 23:15] LABS: DIFF IND YES
[2016-09-01 23:29] LABS: PLATELET ESTIMATE NORMAL (NORMAL)
[2016-09-01 23:33] LABS: ALBUMIN SERUM 4.6 g/dL (3.5-5.0); BILIRUBIN, DIRECT 0.1 mg/dL (0.0-0.2); BILIRUBIN,INDIRECT 0.6 mg/dL (0.0-0.9); BILIRUBIN,TOTAL 0.7 mg/dL (0.2-2.0); CALCIUM SERUM 9.2 mg/dL (8.4-10.2); CREATININE SERUM 0.5 mg/dL (0.6-1.4); GLOM FILT RATE Estimated 101.6 mL/min (>60); POTASSIUM 3.6 mmol/L (3.5-5.1); PROTEIN TOTAL SERUM 7.5 g/dL (6.0-8.3)
[2016-09-02 00:40] LABS: ARTERIAL BLD GAS O2 SATURATION 94.1 % (90.0-100.0); ARTERIAL BLOOD GAS CARBOXY HB 0.8 %sat (0.0-9.0); ARTERIAL BLOOD GAS HCO3 26.4 mmol/L
[2016-09-02] MEDS ORDERED: TENORMIN25 MG PO (00:40)
[2016-09-02 00:41] LABS: ARTERIAL BLOOD GAS pH 7.124 (7.350-7.450)
[2016-09-02] MEDS ORDERED: ZESTORETIC 20-1 EAC2 PO (00:41)
[2016-09-02 00:42] LABS: ARTERIAL BLOOD GAS ART SITE RIGHT RADIAL; ARTERIAL BLOOD GAS DELIVERY VENT; ARTERIAL BLOOD GAS PCO2 80.4 mmHg (35.0-45.0); ARTERIAL BLOOD GAS VENT MODE AC; ARTERIAL DRAW? YES
[2016-09-02] MEDS ORDERED: ALBUTEROL17 GM INH (00:42)
[2016-09-02] MEDS ORDERED: SIMVASTATIN20 MG PO (00:42)
[2016-09-02 01:28] LABS: ARTERIAL BLD GAS O2 SATURATION 97.2 % (90.0-100.0); ARTERIAL BLOOD GAS CARBOXY HB 0.6 %sat (0.0-9.0); ARTERIAL BLOOD GAS HCO3 20.9 mmol/L; ARTERIAL BLOOD GAS pH 7.257 (7.350-7.450)
[2016-09-02 01:29] LABS: ARTERIAL BLOOD GAS ART SITE RIGHT BRACHIAL; ARTERIAL BLOOD GAS DELIVERY VENT; ARTERIAL BLOOD GAS VENT MODE AC; ARTERIAL DRAW? YES
[2016-09-02 04:53] LABS: ARTERIAL BLD GAS O2 SATURATION 100.1 % (90.0-100.0); ARTERIAL BLOOD GAS HCO3 19.7 mmol/L; ARTERIAL BLOOD GAS PCO2 33.6 mmHg (35.0-45.0); ARTERIAL BLOOD GAS pH 7.377 (7.350-7.450)
[2016-09-02 04:54] LABS: ARTERIAL BLOOD GAS ALLEN TEST NOMR; ARTERIAL BLOOD GAS ART SITE LEFT RADIAL; ARTERIAL BLOOD GAS CARBOXY HB 0.3 %sat (0.0-9.0); ARTERIAL BLOOD GAS DELIVERY VENT; ARTERIAL BLOOD GAS VENT MODE AC; ARTERIAL DRAW? YES
[2016-09-02 08:07] LABS: BASOPHIL% 0.2 % (0-2.5); EOSINOPHIL% 0.1 % (0.0-7.0); HEMOGLOBIN 12.5 gm/dL (12.0-16.0); LYMPHOCYTE# 0.5 X10e3 (1.0-3.5); LYMPHOCYTE% 3.7 % (17.0-45.0); MEAN CORPUSCULAR HEMOGLOBIN 30.4 PG (28-34); MEAN CORPUSCULAR HGB CONC 33.8 g/dL (30-36); MEAN PLATELET VOLUME 6.2 FL (6.5-11.5); MONOCYTE# 0.1 X10e3 (0-1.0); MONOCYTE% 0.8 % (3.0-12.0); NEUTROPHIL# 13.3 X10e3 (1.5-7.1); NEUTROPHIL% 95.2 % (40-75); PLATELET COUNT 327 X10e3 (140-420); RED BLOOD COUNT 4.12 X10e (3.90-5.30); RED CELL DISTRIBUTION WIDTH 12.5 % (11.0-15.5)
[2016-09-02 08:09] LABS: DIFF IND NO
[2016-09-02 09:09] LABS: ALBUMIN SERUM 3.9 g/dL (3.5-5.0); BILIRUBIN,TOTAL 0.4 mg/dL (0.2-2.0); CALCIUM SERUM 8.8 mg/dL (8.4-10.2); CREATININE SERUM 0.9 mg/dL (0.6-1.4); GLOM FILT RATE Estimated 67.1 mL/min (>60); POTASSIUM 3.7 mmol/L (3.5-5.1); PROTEIN TOTAL SERUM 6.5 g/dL (6.0-8.3)
[2016-09-02 11:04] LABS: ARTERIAL BLOOD GAS CARBOXY HB 0.4 %sat (0.0-9.0); ARTERIAL BLOOD GAS MET HB 1.1 %sat (0.0-2.0); ARTERIAL BLOOD GAS pH 7.376 (7.350-7.450)
[2016-09-02 11:06] LABS: ARTERIAL BLOOD GAS ALLEN TEST NORMAL; ARTERIAL BLOOD GAS ART SITE RIGHT RADIAL; ARTERIAL BLOOD GAS VENT MODE A/C; ARTERIAL DRAW? YES
[2016-09-02 11:08] LABS: INFLUENZA A NEG (NEG); INFLUENZA B NEG (NEG)
[2016-09-02 12:03] LABS: SALICYLATE <4.0 mg/dL
[2016-09-02 12:04] LABS: ACETAMINOPHEN <10 ug/mL
[2016-09-02 14:35] LABS: CREATININE,RANDOM URINE 33 mg/dL; POTASSIUM,URINE RANDOM 30 mmol/L; TOTAL PROTEIN,RANDOM URINE <10 mg/dl (<10); URINE UREA NITROGEN 272 mg/dL
[2016-09-02 14:45] LABS: SODIUM URINE RANDOM <10 mmol/L
[2016-09-02 19:10] LABS: BODY FLUID APPEARANCE CLOUDY; BODY FLUID SOURCE BRONCHIAL LAVAGE
[2016-09-03 04:41] LABS: BASOPHIL% 0.1 % (0-2.5); HEMATOCRIT 29.4 % (35.0-45.0); LYMPHOCYTE# 0.6 X10e3 (1.0-3.5); LYMPHOCYTE% 9.2 % (17.0-45.0); MEAN CELL VOLUME 90.4 FL (83-96); MEAN CORPUSCULAR HEMOGLOBIN 31.5 PG (28-34); MEAN CORPUSCULAR HGB CONC 34.9 g/dL (30-36); MEAN PLATELET VOLUME 6.5 FL (6.5-11.5); MONOCYTE# 0.2 X10e3 (0-1.0); MONOCYTE% 3.5 % (3.0-12.0); NEUTROPHIL# 6.1 X10e3 (1.5-7.1); NEUTROPHIL% 87.2 % (40-75); PLATELET COUNT 243 X10e3 (140-420); RED BLOOD COUNT 3.25 X10e (3.90-5.30); RED CELL DISTRIBUTION WIDTH 12.6 % (11.0-15.5)
[2016-09-03 04:46] LABS: DIFF IND NO; HEMOGLOBIN 10.3 gm/dL (12.0-16.0)
[2016-09-03 04:54] LABS: ARTERIAL BLD GAS O2 SATURATION 98.5 % (90.0-100.0); ARTERIAL BLOOD GAS CARBOXY HB 0.3 %sat (0.0-9.0); ARTERIAL BLOOD GAS HCO3 19.5 mmol/L; ARTERIAL BLOOD GAS MET HB 1.4 %sat (0.0-2.0); ARTERIAL BLOOD GAS PCO2 25.5 mmHg (35.0-45.0); ARTERIAL BLOOD GAS pH 7.492 (7.350-7.450)
[2016-09-03 04:56] LABS: ARTERIAL BLOOD GAS ALLEN TEST NORMAL; ARTERIAL BLOOD GAS ART SITE RIGHT RADIAL; ARTERIAL BLOOD GAS DELIVERY VENT; ARTERIAL BLOOD GAS VENT MODE AC; ARTERIAL DRAW? YES
[2016-09-03 05:06] LABS: BILIRUBIN,TOTAL 0.6 mg/dL (0.2-2.0); BUN/CREATININE RATIO 16.66; CALCIUM SERUM 8.3 mg/dL (8.4-10.2); CREATININE SERUM 0.6 mg/dL (0.6-1.4); GLOM FILT RATE Estimated 95.7 mL/min (>60); POTASSIUM 3.5 mmol/L (3.5-5.1); PROTEIN TOTAL SERUM 5.2 g/dL (6.0-8.3)
[2016-09-03 05:49] LABS: %MB 12.3 % (0.0-4.0); MB 13.6 ng/ml
[2016-09-03 08:28] LABS: CHOLESTEROL 145 mg/dL (0-200); HDL CHOLESTEROL 59 mg/dL (35-95); LDL CHOLESTEROL 48 mg/dL (-130); LDL/HDL RATIO 1 RATIO (0-4); TRIGLYCERIDES 189 mg/dL (10-160)
[2016-09-04 05:12] LABS: BASOPHIL% 0.1 % (0-2.5); HEMATOCRIT 28.9 % (35.0-45.0); HEMOGLOBIN 9.7 gm/dL (12.0-16.0); LYMPHOCYTE# 0.4 X10e3 (1.0-3.5); LYMPHOCYTE% 2.8 % (17.0-45.0); MEAN CELL VOLUME 90.8 FL (83-96); MEAN CORPUSCULAR HEMOGLOBIN 30.6 PG (28-34); MEAN CORPUSCULAR HGB CONC 33.6 g/dL (30-36); MEAN PLATELET VOLUME 6.3 FL (6.5-11.5); MONOCYTE# 0.6 X10e3 (0-1.0); MONOCYTE% 4.5 % (3.0-12.0); NEUTROPHIL# 11.9 X10e3 (1.5-7.1); NEUTROPHIL% 92.6 % (40-75); PLATELET COUNT 250 X10e3 (140-420); RED BLOOD COUNT 3.19 X10e (3.90-5.30); RED CELL DISTRIBUTION WIDTH 12.8 % (11.0-15.5); WHITE BLOOD COUNT 12.8 X10e3 (4.0-10.5)
[2016-09-04 05:13] LABS: DIFF IND NO
[2016-09-04 06:02] LABS: BILIRUBIN,TOTAL 0.2 mg/dL (0.2-2.0); CALCIUM SERUM 8.5 mg/dL (8.4-10.2); CREATININE SERUM 0.5 mg/dL (0.6-1.4); GLOM FILT RATE Estimated 101.6 mL/min (>60); POTASSIUM 4.2 mmol/L (3.5-5.1); PROTEIN TOTAL SERUM 5.1 g/dL (6.0-8.3)
[2016-09-05 06:03] LABS: BASOPHIL% 0.1 % (0-2.5); HEMATOCRIT 31.5 % (35.0-45.0); HEMOGLOBIN 10.7 gm/dL (12.0-16.0); LYMPHOCYTE# 0.6 X10e3 (1.0-3.5); LYMPHOCYTE% 6.4 % (17.0-45.0); MEAN CELL VOLUME 91.7 FL (83-96); MEAN CORPUSCULAR HEMOGLOBIN 31.1 PG (28-34); MEAN CORPUSCULAR HGB CONC 33.9 g/dL (30-36); MEAN PLATELET VOLUME 6.3 FL (6.5-11.5); MONOCYTE# 0.4 X10e3 (0-1.0); MONOCYTE% 4.3 % (3.0-12.0); NEUTROPHIL# 8.2 X10e3 (1.5-7.1); NEUTROPHIL% 89.2 % (40-75); PLATELET COUNT 249 X10e3 (140-420); RED BLOOD COUNT 3.44 X10e (3.90-5.30); RED CELL DISTRIBUTION WIDTH 12.9 % (11.0-15.5); WHITE BLOOD COUNT 9.3 X10e3 (4.0-10.5)
[2016-09-05 06:12] LABS: DIFF IND NO
[2016-09-05 06:20] LABS: PARTIAL THROMBOPLASTIN TIME 28.2 SECONDS (23.5-31.3); PROTHROMBIN TIME (PATIENT) 10.4 SECONDS (9.6-11.5)
[2016-09-05 07:30] LABS: ALBUMIN SERUM 3.3 g/dL (3.5-5.0); BILIRUBIN,TOTAL 0.5 mg/dL (0.2-2.0); CALCIUM SERUM 8.7 mg/dL (8.4-10.2); CREATININE SERUM 0.5 mg/dL (0.6-1.4); GLOM FILT RATE Estimated 101.6 mL/min (>60); POTASSIUM 4.7 mmol/L (3.5-5.1); PROTEIN TOTAL SERUM 5.5 g/dL (6.0-8.3)
[2016-09-05 08:08] LABS: ARTERIAL BLD GAS O2 SATURATION 94.5 % (90.0-100.0); ARTERIAL BLOOD GAS CARBOXY HB 1.5 %sat (0.0-9.0); ARTERIAL BLOOD GAS HCO3 24.6 mmol/L; ARTERIAL BLOOD GAS MET HB 0.9 %sat (0.0-2.0); ARTERIAL BLOOD GAS PCO2 47.8 mmHg (35.0-45.0); ARTERIAL BLOOD GAS PO2 84.3 mmHg (80.0-100)
[2016-09-05 08:09] LABS: ARTERIAL BLOOD GAS ALLEN TEST N; ARTERIAL BLOOD GAS ART SITE LEFT RADIAL; ARTERIAL DRAW? YES
[2016-09-05 08:10] LABS: ARTERIAL BLOOD GAS DELIVERY OXYMIZER
[2016-09-05 11:38] LABS: ARTERIAL BLOOD GAS CARBOXY HB 0.3 %sat (0.0-9.0); ARTERIAL BLOOD GAS HCO3 29.9 mmol/L; ARTERIAL BLOOD GAS PCO2 47.2 mmHg (35.0-45.0)
[2016-09-05 11:40] LABS: ARTERIAL BLOOD GAS ALLEN TEST N; ARTERIAL BLOOD GAS ART SITE LEFT RADIAL; ARTERIAL DRAW? YES
[2016-09-06 04:51] LABS: BASOPHIL% 0.2 % (0-2.5); HEMOGLOBIN 11.1 gm/dL (12.0-16.0); LYMPHOCYTE# 0.6 X10e3 (1.0-3.5); LYMPHOCYTE% 6.9 % (17.0-45.0); MEAN CELL VOLUME 90.3 FL (83-96); MEAN CORPUSCULAR HEMOGLOBIN 30.4 PG (28-34); MEAN CORPUSCULAR HGB CONC 33.7 g/dL (30-36); MEAN PLATELET VOLUME 6.4 FL (6.5-11.5); MONOCYTE# 0.5 X10e3 (0-1.0); MONOCYTE% 6.2 % (3.0-12.0); NEUTROPHIL# 7.5 X10e3 (1.5-7.1); NEUTROPHIL% 86.7 % (40-75); PLATELET COUNT 245 X10e3 (140-420); RED BLOOD COUNT 3.66 X10e (3.90-5.30); RED CELL DISTRIBUTION WIDTH 12.8 % (11.0-15.5); WHITE BLOOD COUNT 8.7 X10e3 (4.0-10.5)
[2016-09-06 04:52] LABS: DIFF IND NO
[2016-09-06 05:07] LABS: ARTERIAL BLD GAS O2 SATURATION 95.1 % (90.0-100.0); ARTERIAL BLOOD GAS HCO3 39.7 mmol/L; ARTERIAL BLOOD GAS MET HB 1.1 %sat (0.0-2.0); ARTERIAL BLOOD GAS PCO2 43.2 mmHg (35.0-45.0); ARTERIAL BLOOD GAS pH 7.571 (7.350-7.450)
[2016-09-06 05:13] LABS: ARTERIAL BLOOD GAS ALLEN TEST NORMAL; ARTERIAL BLOOD GAS ART SITE RIGHT BRACHIAL; ARTERIAL BLOOD GAS PO2 72.6 mmHg (80.0-100); ARTERIAL DRAW? YES
[2016-09-06 05:14] LABS: ARTERIAL BLOOD GAS DELIVERY OXYMIZER
[2016-09-06 06:51] LABS: ALBUMIN SERUM 3.4 g/dL (3.5-5.0); BILIRUBIN,TOTAL 0.6 mg/dL (0.2-2.0); CALCIUM SERUM 8.8 mg/dL (8.4-10.2); CREATININE SERUM 0.5 mg/dL (0.6-1.4); GLOM FILT RATE Estimated 101.6 mL/min (>60); POTASSIUM 3.3 mmol/L (3.5-5.1); PROTEIN TOTAL SERUM 5.6 g/dL (6.0-8.3)
[2016-09-07 06:04] LABS: BASOPHIL% 0.1 % (0-2.5); EOSINOPHIL% 0.2 % (0.0-7.0); HEMATOCRIT 39.1 % (35.0-45.0); LYMPHOCYTE# 1.5 X10e3 (1.0-3.5); LYMPHOCYTE% 13.5 % (17.0-45.0); MEAN CELL VOLUME 90.1 FL (83-96); MEAN CORPUSCULAR HEMOGLOBIN 30.2 PG (28-34); MEAN CORPUSCULAR HGB CONC 33.5 g/dL (30-36); MEAN PLATELET VOLUME 6.6 FL (6.5-11.5); MONOCYTE# 1.1 X10e3 (0-1.0); MONOCYTE% 10.3 % (3.0-12.0); NEUTROPHIL# 8.3 X10e3 (1.5-7.1); NEUTROPHIL% 75.9 % (40-75); PLATELET COUNT 275 X10e3 (140-420); RED BLOOD COUNT 4.34 X10e (3.90-5.30); RED CELL DISTRIBUTION WIDTH 12.6 % (11.0-15.5); WHITE BLOOD COUNT 10.9 X10e3 (4.0-10.5)
[2016-09-07 06:27] LABS: HEMOGLOBIN 13.1 gm/dL (12.0-16.0)
[2016-09-07 06:29] LABS: DIFF IND NO
[2016-09-07 07:16] LABS: BUN/CREATININE RATIO 26.25; CALCIUM SERUM 9.1 mg/dL (8.4-10.2); CREATININE SERUM 0.8 mg/dL (0.6-1.4); GLOM FILT RATE Estimated 77.4 mL/min (>60); MAGNESIUM 1.8 mg/dL (1.6-3.0)
[2016-09-07 07:18] LABS: POTASSIUM 2.3 mmol/L (3.5-5.1)
[2016-09-08 06:27] LABS: HEMATOCRIT 37.3 % (35.0-45.0); HEMOGLOBIN 12.6 gm/dL (12.0-16.0); MEAN CELL VOLUME 90.4 FL (83-96); MEAN CORPUSCULAR HEMOGLOBIN 30.5 PG (28-34); MEAN CORPUSCULAR HGB CONC 33.7 g/dL (30-36); MEAN PLATELET VOLUME 6.6 FL (6.5-11.5); RED BLOOD COUNT 4.12 X10e (3.90-5.30); RED CELL DISTRIBUTION WIDTH 12.5 % (11.0-15.5); WHITE BLOOD COUNT 9.2 X10e3 (4.0-10.5)
[2016-09-08 07:05] LABS: CALCIUM SERUM 8.8 mg/dL (8.4-10.2); CREATININE SERUM 0.7 mg/dL (0.6-1.4); GLOM FILT RATE Estimated 90.9 mL/min (>60)
== END 2016-09-08 13:37 | DRG 853 ==
LOC: CED 22:36 → CEDOF 23:20 → CICCU2 09-02 01:18 → CEDOF 09-02 01:22 → CED 09-02 01:22 → CICCU2 09-02 03:31 → CEDOF 09-02 03:31 → CICCU2 09-04 09:35 → C5C 09-06 15:46
PROVIDERS: Emergency Medicine; Family Medicine; Internal Medicine; Internal Medicine Cardiovascular Disease; Internal Medicine Pulmonary Disease; Nurse Practitioner
PROC: 0B9M8ZZ Drainage of Bilateral Lungs, Via Natural or Artificial Opening Endoscopic (ICD-10-PCS; 2016-09-02)
PROC: 5A1945Z Respiratory Ventilation, 24-96 Consecutive Hours (ICD-10-PCS; 2016-09-02)
PROC: 05HM33Z Insertion of Infusion Device into Right Internal Jugular Vein, Percutaneous Approach (ICD-10-PCS; 2016-09-02)
PROC: B543ZZA Ultrasonography of Right Jugular Veins, Guidance (ICD-10-PCS; 2016-09-02)
PROC: B24BYZZ Ultrasonography of Heart with Aorta using Other Contrast (ICD-10-PCS; 2016-09-02)
PROC: 0BH17EZ Insertion of Endotracheal Airway into Trachea, Via Natural or Artificial Opening (ICD-10-PCS; principal; 2016-09-02 13:57)
PROC: 0B9F8ZX Drainage of Right Lower Lung Lobe, Via Natural or Artificial Opening Endoscopic, Diagnostic (ICD-10-PCS; 2016-09-02 13:57)
PROC: 4A023N7 Measurement of Cardiac Sampling and Pressure, Left Heart, Percutaneous Approach (ICD-10-PCS; 2016-09-05)
PROC: B211YZZ Fluoroscopy of Multiple Coronary Arteries using Other Contrast (ICD-10-PCS; 2016-09-05)
PROC: B215YZZ Fluoroscopy of Left Heart using Other Contrast (ICD-10-PCS; 2016-09-05)
DX: A41.9 Sepsis, unspecified organism (principal); J96.21 Acute and chronic respiratory failure with hypoxia; I21.4 Non-ST elevation (NSTEMI) myocardial infarction; R57.0 Cardiogenic shock; J18.9 Pneumonia, unspecified organism; G92 Toxic encephalopathy; I50.21 Acute systolic (congestive) heart failure; J44.1 Chronic obstructive pulmonary disease with (acute) exacerbation; E87.1 Hypo-osmolality and hyponatremia; J45.901 Unspecified asthma with (acute) exacerbation; E87.2 Acidosis; F10.239 Alcohol dependence with withdrawal, unspecified; I51.81 Takotsubo syndrome; E78.5 Hyperlipidemia, unspecified; G47.33 Obstructive sleep apnea (adult) (pediatric); Z87.891 Personal history of nicotine dependence; Z91.19 Patient's noncompliance with other medical treatment and regimen; I27.2 Other secondary pulmonary hypertension; Y90.0 Blood alcohol level of less than 20 mg/100 ml
CPT/HCPCS: 31500; 36415; 36600; 71010; 74000; 80048; 80053; 80061; 80076; 82010; 82308; 82436; 82550; 82553; 82570; 82693; 82803; 83605; 83735; 83880; 84132; 84133; 84156; 84300; 84443; 84484; 84540; 84600; 85025; 85027; 85610; 85730; 87040; 87070; 87102; 87107; 87116; 87205; 87206; 87252; 87254; 87278; 87449; 87804; 88108; 88305; 88312; 89051; 93005; 93306; 94002; 94003; 94640; 94644; 94660; 94760; 94761; 96365; 96375; 97163; 97167; 97530; 97535; 99291; 99292; C1769; C1887; C1894; C9113; G0480; G8978-GP; G8979-GP; G8987-GO; G8988-GO; J0171; J0330; J0696; J1630; J1644; J1650; J1940; J1956; J2060; J2250; J2920; J2930; J3010; J3411; J3475; J7042

== ENCOUNTER 2016-09-25 11:02 | Inpatient (IN) | payer MEDICARE, BC ==
--- NOTE | ~2016-09-25 | DS ---
Unit #: [id number] #: [id number] Patient: ZARI MTZ [id number] [address] [address] [id number] I MR#: [id number] NAME: ZARI MZT. ROOM: 547 Age: 66 Sex: F Admission Date: 09/25/2016 : 1950 Discharge Date: 09/27/2016 Attending Physician: Brooke Stevenson M.D. Primary Care Physician: Zbigniew Luna M.D. DISCHARGE SUMMARY DISCHARGE DIAGNOSES 1. Hypovolemic shock. Also low blood pressure secondary to multiple blood pressure medications. 2. Acute kidney injury. 3. Hyponatremia, likely secondary to hydrochlorothiazide. 4. Chronic systolic heart failure, ejection fraction 35%. 5. Chronic obstructive pulmonary disease with mild exacerbation. 6. Hypokalemia. 7. Hypomagnesemia. 8. Alcohol abuse. 9. Obesity. BMI 31. 10. Former smoker. CONSULTANTS Dr. Powers. DIAGNOSTIC DATA LABORATORY: Sodium 131, potassium 3.8, creatinine 0.7. Liver enzymes normal. Albumin 3.3, magnesium 1.6. Blood cultures negative. C-diff negative. Troponins negative. IMAGING: Ultrasound of the kidneys negative. Ultrasound of the liver shows hepatomegaly. ALLERGIES Codeine. DISCHARGE MEDICATIONS 1. Albuterol inhalation q.4-6 h. p.r.n. shortness of breath. 2. Duo-Neb inhalation nebulizer q.i.d. 3. Simvastatin 20 mg daily. HOSPITAL COURSE The patient is a 66-year-old admitted because of low blood pressure and dizziness. Hypotension: Secondary to hypovolemic shock. Also secondary to multiple blood pressure medications which have been discontinued. She also has dehydration. The patient received IV fluids. Currently blood pressure is stable at 91/55. Hold all her blood pressure medications. Acute kidney injury: Secondary to prerenal, hydrochlorothiazide, lisinopril and dehydration. All medications have been held. IV fluids Unit #: [id number] #: [id number] Patient: ZARI MTZ given. Creatinine is stable. Hyponatremia: Likely secondary to hydrochlorothiazide, which has been discontinued. Chronic systolic heart failure: Please note that no MARKY inhibitor or ARB will be given because of acute kidney injury and hypotension. Mild chronic obstructive pulmonary disease with exacerbation. Stable. The patient does not need any steroids. Hyperlipidemia: Continue with simvastatin. DISPOSITION The patient will be discharged home. FOLLOWUP 1. Follow up with family physician in one week time. 2. Follow up with Dr. Vega in two weeks time. Discussed with the daughter, Lorie. Dictated by... Brooke Stevenson M.D. KJ/henok TD: 09/27/2016 11:35 JOB #: [id number] CC: Zbigniew Luna M.D. DISCHARGE SUMMARY Page 1 of 1 X Brooke Stevenson MD X DISCHARGE SUMMARY
--- NOTE | ~2016-09-25 | US88 ---
[facility] A Service of [facility] RADIOLOGY TEXT RESULTS PATIENT: ZARI MTZ LOCATION: [facility] [id number] : [birth year] UNIT #: [id number] AGE: [address]: Brooke Stevenson MD SEX: F ORDER DR: [id number] [facility] [address] [place], [place] [address] [id number] I MR#: [id number] Acc #: [id number] NAME: ZARI MTZ. : 1950 SEX: F STUDY DATE/TIME: 09/25/2016 20:26 UNIT: [facility] ROOM: [facility] STUDY DESCRIPTION: US Liver or Hepatic Attending Physician: Manju Nunez M.D. Ordering Physician: Javi Powers Jr., M.D. Primary Care Physician: Zbigniew Luna M.D. MEDICAL IMAGING REPORT This report is preliminary unless electronic signature is present EXAM Liver ultrasound. COMPARISON CT angiography of the chest dated May 04, 2016. INDICATIONS 66-year-old female with elevated liver enzymes and history of alcohol abuse. FINDINGS Hepatic contour appears smooth. Portal architecture appears preserved. There is top normal hepatic length of 15.7 cm. Main portal vein is patent. The gallbladder is not well seen possibly an artifact due to adjacent bowel loop and bowel gas and seen at the posterior aspect of the left hepatic lobe there is an echogenic focus with posterior shadowing, which could certainly represent artifact from bowel gas. This does not favor the location of the gallbladder seen on CT of May 04, 2016, but seems to favor bowel gas. Alternatively, this could reflect pneumobilia if there has been prior ERCP and sphincter of Oddi manipulation. IMPRESSION 1. Mild hepatomegaly with smooth hepatic contour. No evidence of hepatic mass lesion. No evidence of cirrhosis. 2. Echogenic focus with shadowing seen at the level of the left hepatic lobe posteriorly. Conceivably this could represent artifact from gas within a bowel loop along the posterior margin of the liver but this appears to be, possibly within the liver itself and would suggest pneumobilia. This is of uncertain etiology, and no evidence of pneumobilia was seen on CT of April 2016. If the patient has had interval ERCP with sphincter of Oddi manipulation, this could be a potential etiology of the pneumobilia. Clinical correlation recommended. [facility] A Service of [facility] RADIOLOGY TEXT RESULTS PATIENT: ZARI MTZ LOCATION: [facility] 54- : [birth year] UNIT #: [id number] AGE: [address]: Brooke Stevenson MD SEX: F ORDER DR: Dictated by... Jose Borrego M.D. THIS IS AN ELECTRONICALLY VERIFIED REPORT Jose Borrego M.D. at 10/01/2016 7:33 AM Kelsey TD: 09/26/2016 01:27 JOB #: [id number] MEDICAL IMAGING REPORT Page 1 of 1 COPY
--- NOTE | ~2016-09-25 | US77 ---
[facility] A Service of [facility] RADIOLOGY TEXT RESULTS PATIENT: ZARI MTZ LOCATION: [place] [address]- : [birth year] UNIT #: [id number] AGE: [address]: Manju Nunez MD SEX: F ORDER DR: [id number] [facility] [address] [place], [place] [address] [id number] I MR#: [id number] Acc #: [id number] NAME: ZARI MTZ. : 1950 SEX: F STUDY DATE/TIME: 09/25/2016 20:18 UNIT: [facility] ROOM: [facility] STUDY DESCRIPTION: US Kidney Bilateral Complete Attending Physician: Manju Nunez M.D. Ordering Physician: Manju Nunez M.D. Primary Care Physician: Zbigniew Luna M.D. MEDICAL IMAGING REPORT This report is preliminary unless electronic signature is present EXAM Ultrasound of both kidneys, 09/25/16. HISTORY Acute kidney injury. TECHNIQUE Holley-scale ultrasound imaging of both kidneys and the urinary bladder. FINDINGS Both kidneys are normal in size and appearance, with the exception of a 1.3 cm benign simple cyst in the right kidney. There is no evidence of urinary obstruction. No visible nephrolithiasis, solid renal mass or perinephric fluid collection. Urinary bladder is somewhat poorly seen, but is grossly negative. IMPRESSION Negative bilateral renal ultrasound examination. No evidence of urinary obstruction. Dictated by... Anatoliy Anna M.D. THIS IS AN ELECTRONICALLY VERIFIED REPORT Anatoliy Anna M.D. at 09/26/2016 5:51 AM Haven TD: 09/26/2016 01:37 JOB #: [id number] MEDICAL IMAGING REPORT Page 1 of 1 COPY
--- NOTE | ~2016-09-25 | CO ---
Unit #: [id number] #: [id number] Patient: ZARI MUHAMMAD [id number] [address] [place], [place] [address] [id number] MR#: [id number] NAME: ZARI MUHAMMAD ROOM: 547 Age: 66 Sex: F Admission Date: 09/25/2016 : 1950 Attending Physician: Brooke Stevenson M.D. Primary Care Physician: Zbigniew Luna M.D. Consultation Date: 09/25/2016 CONSULTATION REPORT REASON FOR CONSULTATION Acute kidney injury. HISTORY OF PRESENT ILLNESS Ms. Muhammad is a 66-year-old female, whom we were asked to see for acute kidney injury today with an admission creatinine of 3 from her previous baseline of 0.7. The patient just got out of the hospital on 09/08/2016 for a combination of respiratory issues and heart issues. She did have a heart catheterization on 09/05/2016, but did leave the hospital 3 days later with a creatinine of 0.7, so dye injury is not likely. The patient was placed on a lot of heart and blood pressure medicines at the time of discharge and has been feeling poorly, especially over the last few days she is very weak and tired. She called Dr. Vega's office who worked her in today, but when they assessed her blood pressure, it was in the 60s and they sent her here to the emergency room. The patient was not making much urine over the past few days, but has responded with urine output here in the ER after fluid boluses. She is lying nearly flat with no chest discomfort or shortness of breath. She did take some Advil two days ago, but she does not take them regularly. No history of kidney stones. No swelling or rashes. PAST MEDICAL HISTORY Significant for COPD with tobacco abuse, alcohol abuse, congestive heart failure with an ejection fraction of 35%, recent pneumonia and sepsis, hyperlipidemia. PAST SURGICAL HISTORY Cardiac catheterization and bronchoscopy. HOME MEDICATIONS On the admission MAR are atenolol 25 mg b.i.d., on hold; Zestoretic 20/25 mg a day; simvastatin 20 mg daily; Aldactone 25 mg a day; Combivent inhaler; Ventolin inhaler; Lasix 40 mg b.i.d. ALLERGIES She has an allergy to codeine. FAMILY HISTORY Negative for any family history of kidney disease or dialysis. There is no family history of heart disease. SOCIAL HISTORY The patient was drinking a six pack of beer daily, but none for several weeks. She quit smoking 6 months ago. No drug use. She does have a Unit #: [id number] #: [id number] Patient: ZARI MUHAMMAD supportive daughter in the ER room with her today. REVIEW OF SYSTEMS A complete 12-point review of systems was completed with the above findings. In addition, she has had some dizziness and lightheadedness. No nosebleed or sore throat. No earache. No palpitations. No cough, no hemoptysis. She has had some nausea, vomiting, and diarrhea nonbloody. She does mention some acid reflux. No dysuria or gross hematuria. No swelling. No pruritus. No flank pain. No fevers or chills. No night sweats or hot flashes. No intolerance to heat or cold. No bleeding issues. She thinks she may have lost some weight recently. Unless otherwise indicated, the review of systems was negative. PHYSICAL EXAMINATION VITAL SIGNS: The patient is afebrile. Pulse 77, respiratory rate 18, and blood pressure 94/51, has been as low as 63/52. GENERAL: This is a 66-year-old female, who is alert, feels cold, but in no acute distress. HEENT: Head is atraumatic and normocephalic. Eyes show pink conjunctivae with no scleral icterus. No nasal drainage or nosebleed. Oropharynx is dry without thrush. NECK: Shows no rigidity. HEART: Regular rate and rhythm with no significant murmur or rub appreciated. LUNGS: Have scattered expiratory wheezing. No rhonchi. Breathing is nonlabored. ABDOMEN: Soft and nontender. There are bowel sounds present without masses. EXTREMITIES: No lower extremity cyanosis or pitting edema. SKIN: Dry without rashes. MUSCULOSKELETAL: No joint effusions noted. No CVA tenderness to palpation. NEUROLOGICAL: Noteworthy for generalized weakness without focal deficit. LYMPHATIC: There is no neck or cervical lymphadenopathy. PSYCHIATRIC: Mood and affect appear normal. DIAGNOSTIC STUDIES LABORATORY RESULTS: Admission labs showed an unremarkable CBC. Chemistry noteworthy for a sodium of 125, potassium 3.6, bicarb 20, BUN and creatinine were 90 and 3.0 respectively. INR was 1. Lactic acid 1.3. Followup creatinine at 11:45 this morning showed a creatinine up to 3.2. Rest of the CMP was unremarkable. CPK level came back at 30. Urine sodium was 30. Urine osmolality was just 242. IMAGING STUDIES: Chest x-ray done showed that the lungs were clear with no effusion. Creatinine was 0.7 on discharge 09/08/2016. Previous urinalysis has not been done. Also, imaging was reviewed. I do not see any dedicated kidney imaging in her last admission. ASSESSMENT AND PLAN 1. Acute kidney injury. I suspect this is all prerenal from significant hypotension while on diuretics and an MARKY inhibitor as well as Aldactone. All of those medications have been held and we will continue fluids overnight and monitor for response. Contrast dye injury is less likely, but still possible I suppose as her creatinine did trend up a little bit after heart catheterization prior to discharge, but again I suspect this Unit #: [id number] #: [id number] Patient: ZARI MUHAMMAD is unlikely. Atheroembolic disease would also be in the differential, but also less likely. We will monitor her response overnight and make further recommendations in the morning. 2. Hyponatremia. This is an acute on chronic issue and she is a known alcoholic previously drinking beer. The high sodium level I see was 135, but most of her readings last admission were low. We will continue saline and hold her hydrochlorothiazide and correct slowly. 3. Hypotension, on fluid support and all BP medications are held. With her history of alcohol abuse, I do think we should get a liver ultrasound in addition to her kidney ultrasound to rule out any cirrhosis as a cause of her persistent hypotension. 4. History of congestive heart failure with an ejection fraction of 35%. She looks compensated on exam and no fluid on x-ray. I do think it is okay to hydrate. 5. Chronic obstructive pulmonary disease with previous tobacco abuse. 6. Alcohol abuse. I would like to thank Dr. Nunez for this consult and the opportunity to participate in evaluation and care of Ms. Winter Muhammad. Dictated by... Javi Powers Jr., M.D. CICI/karina TD: 09/26/2016 14:59 JOB #: [id number] CONSULTATION REPORT Page 1 of 1 X Javi Powers MD CONSULTATION REPORT
--- NOTE | ~2016-09-25 | CO ---
Unit #: [id number] #: [id number] Patient: ZARI MTZ [id number] [address] [address] [id number] I MR#: [id number] NAME: ZARI MTZ. ROOM: 547 Age: 66 Sex: F Admission Date: 09/25/2016 : 1950 Attending Physician: Brooke Stevenson M.D. Primary Care Physician: Zbigniew Luna M.D. Consultation Date: 09/26/2016 CONSULTATION REPORT REASON FOR CONSULTATION COPD. CHIEF COMPLAINT Hypotension. HISTORY OF PRESENT ILLNESS A 66-year-old female with past medical history of COPD, CHF, hypertension, dyslipidemia, alcohol abuse who presents to the emergency room with a complaint of low blood pressure. I am seeing the patient at bedside, complaining of shortness of breath. Denies any headache, blurry vision. No chest pain. REVIEW OF SYSTEMS Positive for pallor. No edema. No cyanosis. No jaundice. The rest are per history of present illness. The rest of a 12-point review of systems has been reviewed and is negative. PAST MEDICAL HISTORY 1. COPD. 2. Congestive heart failure. 3. Stress cardiomyopathy. 4. Hypertension. 5. Dyslipidemia. SOCIAL HISTORY Drinks beer. Smoker. FAMILY HISTORY None as per record. MEDICATIONS 1. Tenormin. 2. Zestoretic. 3. Simvastatin. 4. Aldactone. 5. Ventolin. 6. Lasix. PHYSICAL EXAMINATION VITAL SIGNS: Temperature 98, pulse 87, respirations 12, blood pressure 100/70. NEUROLOGIC: Awake, alert, oriented. No neuro deficit. HEENT: PERRLA plus 1. Unit #: [id number] #: [id number] Patient: ZARI MTZ NECK: Supple. No JVD. CHEST: Bilateral air entry. Bilateral mild rhonchi. GASTROINTESTINAL: Nontender, soft. Bowel sounds positive. EXTREMITIES: No edema. SKIN: No rash. No ulcer. LYMPHATIC: No lymphadenopathy. DIAGNOSTIC STUDIES Labs and imaging have been reviewed. ASSESSMENT 1. Chronic obstructive pulmonary disease. 2. Hypertension. 3. Acute kidney injury. 4. History of congestive heart failure. PLAN Plan is to continue IV fluid. Hold antihypertensive medications. Continue bronchodilators. Gastrointestinal/deep venous thrombosis prophylaxis. Continue current management. Nephrology consultation. We will continue to follow. Please see orders for detailed plan. Thank you very much for this consultation. Dictated by... Jenny Granda M.D. CLAIRE/марина TD: 09/27/2016 11:38 JOB #: [id number] CONSULTATION REPORT Page 1 of 1 X Jenny Granda MD X CONSULTATION REPORT
--- NOTE | ~2016-09-25 | CR71 ---
[facility] A Service of [facility] RADIOLOGY TEXT RESULTS PATIENT: ZARI MTZ LOCATION: [facility] : [birth year] UNIT #: [id number] AGE: [address]: Brooke Stevenson MD SEX: F ORDER DR: [id number] [facility] [address] [facility]. [place], [place] [address] [id number] MR#: [id number] Acc #: [id number] NAME: ZARI MTZ. : 1950 SEX: F STUDY DATE/TIME: 09/25/2016 12:07 UNIT: CED ROOM: 88420 STUDY DESCRIPTION: CR Chest Single View Attending Physician: Manju Nunez M.D. Ordering Physician: Will Yancey M.D. Primary Care Physician: Zbigniew Luna M.D. MEDICAL IMAGING REPORT This report is preliminary unless electronic signature is present EXAM Chest portable 09/25/2016 1207 hours HISTORY 66-year-old woman with 2-week history of shortness of air, hypotension, nausea. COMPARISON 09/06/2016 FINDINGS 2 portable upright views demonstrate mild cardiac enlargement appearing decreased from 09/06/2016. Stable tortuous aorta. The lungs are well expanded and clear. No effusions are seen. IMPRESSION Heart size at the upper limits of normal, appearing decreased from 09/06/2016. The lungs are now clear. There is no effusion or pneumothorax. Dictated by... Renetta Lawson M.D. THIS IS AN ELECTRONICALLY VERIFIED REPORT Renetta Lawson M.D. at 09/26/2016 9:31 AM INNA/meaghan TD: 09/25/2016 17:52 JOB #: [id number] MEDICAL IMAGING REPORT [facility] A Service of [facility] RADIOLOGY TEXT RESULTS PATIENT: ZARI MTZ LOCATION: [facility] : [birth year] UNIT #: [id number] AGE: [address]: Brooke Stevenson MD SEX: F ORDER DR: Page 1 of 1 COPY
--- NOTE | ~2016-09-25 | EKG ---
PATIENT: ZARI MTZ UNIT #: [id number] Ventricular Rate: 74 BPM Atrial Rate: 74 BPM P-R Interval: 156 ms QRS Duration: 96 ms Q-T Interval: 422 ms QTC Calculation(Bezet): 468 ms P Mesa: 58 degrees Calculated R Mesa: 63 degrees Calculated T Mesa: 162 degrees Diagnosis Line: 6 Normal sinus rhythm Diagnosis Line: ST and Marked T wave abnormality, consider Diagnosis Line: anterolateral ischemia Diagnosis Line: Abnormal ECG Diagnosis Line: When compared with ECG of 05-SEP-2016 06:15, Diagnosis Line: Premature ventricular complexes are no longer Diagnosis Line: Present Diagnosis Line: Vent. rate has decreased BY 44 BPM Diagnosis Line: ST now depressed in Anterior leads Diagnosis Line: T wave inversion now evident in Anterior leads Diagnosis Line: Confirmed by ADOLFO FITZPATRICK MD ([id number]) on Diagnosis Line: 09/25/2016 10:19:47 PM INTERPRETING MD: MARY
--- NOTE | ~2016-09-25 | HP ---
Unit #: [id number] #: [id number] Patient: ZARI MTZ [id number] [facility] [address] [facility]. [place], [place] [address] [id number] I MR#: [id number] NAME: ZARI MTZ. ROOM: 61696 Age: 66 Sex: F Admission Date: 09/25/2016 : 1950 Attending Physician: Manju Nunez M.D. Primary Care Physician: Zbigniew Luna M.D. HISTORY AND PHYSICAL CHIEF COMPLAINT Hypotensive. HISTORY OF PRESENT ILLNESS The patient is a 66-year-old female with past medical history of likely COPD, CHF, hypertension, hyperlipidemia, alcohol abuse, who presents to the emergency department from Dr. Vega's office for evaluation of the above. The patient was hospitalized at [facility] September 02 through the 2016 for acute respiratory failure, requiring intubation. The patient had pneumonia and sepsis. She also was noted to have elevated troponin and was seen in consultation by Dr. Vega. She underwent cardiac catheterization that showed no hemodynamically significant stenosis and an ejection fracture of 35%. 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 She was discharged to rehab. The patient reports increasing generalized weakness and fatigue since returning home from rehab about 11 days ago. She denies any falls. No fever. Her cough is much improved and near baseline. She has had chills. She denies any chest pain. She has had decreased p.o. intake. She has also had vomiting and diarrhea. She reports 3-4 bouts of nonbloody emesis and 6-7 bouts of nonbloody diarrhea within the past 24 hours. She states that she has had some epigastric pain that she describes as "burning." There are no exacerbating or alleviating factors. She states that it is similar to when she has had heartburn in the past. She has noticed decreased urine output. She thinks her last void was this morning but is not completely sure. She states that she has taken 1 ibuprofen within the past week. She has been taking her medications as prescribed, although, family at bedside is concerned that she may not be taking medications correctly. The patient's daughter was concerned about the patient's fatigue and weakness and scheduled an appointment with Dr. Vega today. The patient's blood pressure was noted to be low in Dr Vega's office, and so she was sent to the emergency department for further evaluation. In the emergency department, initial blood pressure was 71/35, with a pulse of 73. Temperature was 98.1. She received 2 L of normal saline. Most recent blood pressure is 97 systolic. Laboratories notable for creatinine of 3.2, creatinine was 0.7 on September 08, 2016. Sodium is 125. She is being admitted to [facility] for evaluation and further treatment. Unit #: [id number] #: [id number] Patient: ZARI MTZ PAST MEDICAL HISTORY 1. Admission to [facility], September 02 through the 2016, for acute respiratory failure requiring intubation. The patient had pneumonia and sepsis. She also had elevated troponin and underwent cardiac catheterization that showed an ejection fraction of 35%, but no hemodynamically significant thick stenosis. 2. Likely COPD. The patient sees Dr. Granda. She is not on home oxygen. 3. Congestive heart failure with an ejection fraction of 35% noted on cardiac catheterization within the past month. 4. Hypertension. 5. Hyperlipidemia. 6. Obesity with a BMI of 31. PAST SURGICAL HISTORY 1. Cardiac catheterization with results as noted above. 2. Bronchoscopy. SOCIAL HISTORY The patient drinks a 6-pack of beer daily. Her last drink was 4 weeks ago. She quit smoking 6 months ago. She typically walks without assistance. Her code status is a full-code. She was previously working at [employer] but is no longer working there. FAMILY HISTORY Notable for there being no family history of coronary artery disease. ALLERGIES Codeine. HOME MEDICATIONS 1. Tenormin 25 mg twice daily. 2. Zestoretic 20/25 daily. 3. Simvastatin 20 mg daily. 4. Aldactone 25 mg daily. 5. Ipratropium albuterol 4 times daily. 6. Ventolin 2 inhalations q.4 to 6 hours p.r.n. 7. Lasix 40 mg twice daily. REVIEW OF SYSTEMS A complete review of systems is negative except as indicated in HPI. The patient states that she thinks she has lost weight but is not sure how much. DIAGNOSTIC TESTS EKG: Shows normal sinus rhythm with rate of 74 beats per minute. There is T-wave inversion in leads V2 through V6. There is no old EKG for comparison. CHEST X-RAY: Shows nothing acute, complete blood count notable for white blood cell count of 10.8. Troponin is less than 0.05, INR is 1, lactic acid is 1.3, comprehensive metabolic panel notable for a sodium of 125, chloride 89, glucose 118, BUN and creatinine 92 and 3.2 respectively. PHYSICAL EXAMINATION VITAL SIGNS: Temperature is 98.1, pulse 73, respirations 17, blood pressure 71/35, most recently 97/69, oxygen saturation 99% on room air. Unit #: [id number] #: [id number] Patient: ZARI MTZ GENERAL: The patient is a female who is awake and alert and in no acute distress. HEENT: The head is atraumatic. Mucous membranes are dry. NECK: Supple. Trachea is midline. CARDIOVASCULAR: Regular rate and rhythm. LUNGS: Demonstrate scattered wheezes. Breathing is not labored with conversation. ABDOMEN: Soft, nontender with bowel sounds persistent in all 4 quadrants. EXTREMITIES: Nontender with no pedal edema. NEURO: The patient is awake and alert. She is oriented x3. She follows commands. Psych, mood and affect are normal. The patient is cooperative. SKIN: Skin of the examined areas is warm and dry. ASSESSMENT The patient is a 66-year-old female with: 1) General weakness. 2) Hypotension with an initial blood pressure of 71/35. The patient states that she took her morning blood pressure medication. The patient received 2 L of normal saline in the emergency department. Most recent blood pressure is 97/69. 3) Acute kidney injury. The patient had a creatinine of 0.7 on September 08, 2016. Creatinine is 3.2. I suspect that this is pre-renal in etiology as the patient has had decreased p.o. intake with associated vomiting and diarrhea. The patient is on lisinopril/hydrochlorothiazide, as well as Lasix which could be contributing. 4) Hyponatremia. The patient's sodium has been as low as 121 on September 01, 2016; it is 125 today. The patient was formally a daily drinker. She does appear to be volume depleted. She is on hydrochlorothiazide which could be contributing. 5) Likely chronic obstructive pulmonary disease. 6) Congestive heart failure with an ejection fraction of 35% noted on cardiac catheterization in August of 2016. 7) Hyperlipidemia. 8) Obesity with a BMI of 31. 9) Alcohol abuse with last drink 4 weeks ago. 10) Former smoker. PLAN 1. *Admit to intermediate level. 2. Healthy heart diet if passes bedside swallow. 3. PT/OT to evaluate and treat. 4. Follow up precautions. 5. Normal saline at 75 mL an hour. 6. Monitor blood pressure closely. 7. Hold antihypertensive medications. 8. Blood cultures x2. 9. Urinalysis with culture and sensitivity. 10. Stool studies including ova and parasites, C. difficile, culture and sensitivity. 11. Strict I/O's. 12. Urine sodium, creatinine, eosinophils. 13. Renal ultrasound. 14. Check CPK. 15. Urine and serum osmolality. 16. Repeat BMP later this evening, to follow up hyponatremia. 17. Consult Dr. Powers, regarding acute kidney injury. 18. Hold medications that could be contributing to acute kidney Unit #: [id number] #: [id number] Patient: ZARI MTZ injury and hyponatremia including Zestoretic, Lasix. 19. Supplemental oxygen. 20. P.r.n. DuoNeb. 21. Serial cardiac enzymes. 22. Repeat labs in the morning. 23. SCDs for DVT prophylaxis. 24. Additional workup and consultants as mentioned above. CODE STATUS The patient is a full code. STAT * RESULT 25. 1. Dictated by Manju Nunez M.D. PAWAN/stacy TD: 09/25/2016 16:10 JOB #: [id number] HISTORY AND PHYSICAL Page 1 of 1 X Manju Nunez MD X HISTORY AND PHYSICAL
[~2016-09-25 11:02] MED LIST changes: +ALBUTEROL17 GM INH; +SIMVASTATIN20 MG PO; +TENORMIN25 MG PO; +ZESTORETIC 20-1 EAC2 PO
[2016-09-25 12:06] LABS: BASOPHIL# 0.1 X10e3 (0-0.3); BASOPHIL% 0.8 % (0-2.5); EOSINOPHIL# 0.2 X10e3 (0-0.7); EOSINOPHIL% 2.3 % (0.0-7.0); HEMATOCRIT 38.1 % (35.0-45.0); HEMOGLOBIN 13.1 gm/dL (12.0-16.0); LYMPHOCYTE# 1.2 X10e3 (1.0-3.5); LYMPHOCYTE% 11.1 % (17.0-45.0); MEAN CELL VOLUME 87.3 FL (83-96); MEAN CORPUSCULAR HGB CONC 34.4 g/dL (30-36); MEAN PLATELET VOLUME 7.1 FL (6.5-11.5); MONOCYTE# 0.9 X10e3 (0-1.0); MONOCYTE% 8.5 % (3.0-12.0); NEUTROPHIL# 8.3 X10e3 (1.5-7.1); NEUTROPHIL% 77.3 % (40-75); PLATELET COUNT 280 X10e3 (140-420); RED BLOOD COUNT 4.36 X10e (3.90-5.30); RED CELL DISTRIBUTION WIDTH 12.7 % (11.0-15.5); WHITE BLOOD COUNT 10.8 X10e3 (4.0-10.5)
[2016-09-25 12:09] LABS: DIFF IND NO
[2016-09-25 12:16] LABS: POC - CKMB 4.4 ng/mL (0.0-7.9); POC - TROPONIN <0.05 ng/mL (<=0.05)
[2016-09-25] MEDS ORDERED: PATIENT'S PHARMACY (12:16)
[2016-09-25] MEDS ORDERED: ALDACTONE PO (12:17)
[2016-09-25] MEDS ORDERED: IPRATR-ALBUTEROL3 ML NEB (12:17)
[2016-09-25 12:29] LABS: PARTIAL THROMBOPLASTIN TIME 25.7 SECONDS (23.5-31.3); PROTHROMBIN TIME (PATIENT) 10.4 SECONDS (9.6-11.5)
[2016-09-25 12:48] LABS: ALBUMIN SERUM 3.9 g/dL (3.5-5.0); BILIRUBIN, DIRECT 0.1 mg/dL (0.0-0.2); BILIRUBIN,INDIRECT 0.9 mg/dL (0.0-0.9); BUN/CREATININE RATIO 28.75; CALCIUM SERUM 9.1 mg/dL (8.4-10.2); CREATININE SERUM 3.2 mg/dL (0.6-1.4); GLOM FILT RATE Estimated 14.5 mL/min (>60); POTASSIUM 3.8 mmol/L (3.5-5.1); PROTEIN TOTAL SERUM 6.9 g/dL (6.0-8.3)
[2016-09-25] MEDS ORDERED: ALBUTEROL17 GM PO (12:49)
[2016-09-25] MEDS ORDERED: LASIX PO (12:49)
[2016-09-25 15:52] LABS: CREATININE,RANDOM URINE 73 mg/dL; SODIUM URINE RANDOM 30 mmol/L
[2016-09-25 15:55] LABS: OSMOLALITY,URINE 242 mOsmo/kg (250-900)
[2016-09-25 18:34] LABS: BUN/CREATININE RATIO 34.16; CALCIUM SERUM 8.3 mg/dL (8.4-10.2); CREATININE SERUM 2.4 mg/dL (0.6-1.4); GLOM FILT RATE Estimated 20.5 mL/min (>60)
[2016-09-25 18:35] LABS: POTASSIUM 3.1 mmol/L (3.5-5.1)
[2016-09-25 21:06] LABS: URINE APPEARANCE CLEAR; URINE BILIRUBIN NEG (NEG); URINE BLOOD NEG (NEG); URINE COLOR YELLOW; URINE GLUCOSE NEG (NEG); URINE KETONE NEG (NEG); URINE LEUKOCYTE ESTERASE TRACE (NEG); URINE NITRATE NEG (NEG); URINE PROTEIN NEG (NEG); URINE SPECIFIC GRAVITY 1.008 (1.003-1.035); URINE UROBILINOGEN 0.2 MG/DL (NEG)
[2016-09-25 21:08] LABS: U HYALINE CASTS AUWI 0-2 /[LPF]; URINE BACTERIA AUWI NEG (NEGATIVE); URINE SQUAMOUS EPITHELIAL CELL OCC /[HPF]; UWBCS1 AUWI 0-2 (0-5)
[2016-09-25 21:14] LABS: MAGNESIUM 1.5 mg/dL (1.6-3.0); PHOSPHOROUS 5.1 mg/dL (2.5-4.6)
[2016-09-26 00:35] LABS: CK TOTAL 32 IU/L (26-140)
[2016-09-26 05:34] LABS: HEMATOCRIT 34.7 % (35.0-45.0); HEMOGLOBIN 11.8 gm/dL (12.0-16.0); MEAN CELL VOLUME 88.7 FL (83-96); MEAN CORPUSCULAR HEMOGLOBIN 30.2 PG (28-34); MEAN CORPUSCULAR HGB CONC 34.1 g/dL (30-36); MEAN PLATELET VOLUME 7.2 FL (6.5-11.5); RED BLOOD COUNT 3.91 X10e (3.90-5.30); RED CELL DISTRIBUTION WIDTH 12.7 % (11.0-15.5); WHITE BLOOD COUNT 6.7 X10e3 (4.0-10.5)
[2016-09-26 06:14] LABS: ALBUMIN SERUM 3.5 g/dL (3.5-5.0); BILIRUBIN,TOTAL 1.1 mg/dL (0.2-2.0); BUN/CREATININE RATIO 46.42; CALCIUM SERUM 8.4 mg/dL (8.4-10.2); CREATININE SERUM 1.4 mg/dL (0.6-1.4); GLOM FILT RATE Estimated 39.3 mL/min (>60); MAGNESIUM 1.5 mg/dL (1.6-3.0); PHOSPHOROUS 3.2 mg/dL (2.5-4.6); POTASSIUM 3.2 mmol/L (3.5-5.1); PROTEIN TOTAL SERUM 5.9 g/dL (6.0-8.3)
[2016-09-26 06:16] LABS: URIC ACID 12.2 mg/dL (2.6-7.2)
[2016-09-27 07:11] LABS: ALBUMIN SERUM 3.3 g/dL (3.5-5.0); BILIRUBIN,TOTAL 0.6 mg/dL (0.2-2.0); BUN/CREATININE RATIO 54.28; CALCIUM SERUM 8.7 mg/dL (8.4-10.2); CREATININE SERUM 0.7 mg/dL (0.6-1.4); GLOM FILT RATE Estimated 90.9 mL/min (>60); MAGNESIUM 1.6 mg/dL (1.6-3.0); POTASSIUM 3.8 mmol/L (3.5-5.1); PROTEIN TOTAL SERUM 5.3 g/dL (6.0-8.3)
== END 2016-09-27 14:04 | disposition home or self-care (01) | DRG 682 ==
LOC: CED 11:02 → CEDOF 14:35 → C5B 14:35 → CED 15:13 → CEDOF 15:13 → C5B 18:50
PROVIDERS: Emergency Medicine; Family Medicine; Internal Medicine
DX: N17.9 Acute kidney failure, unspecified (principal); R57.1 Hypovolemic shock; E87.1 Hypo-osmolality and hyponatremia; I50.22 Chronic systolic (congestive) heart failure; J44.1 Chronic obstructive pulmonary disease with (acute) exacerbation; E87.6 Hypokalemia; E83.42 Hypomagnesemia; F10.10 Alcohol abuse, uncomplicated; E66.9 Obesity, unspecified; Z68.31 Body mass index [BMI] 31.0-31.9, adult; E78.5 Hyperlipidemia, unspecified; Z88.5 Allergy status to narcotic agent; Z87.891 Personal history of nicotine dependence
CPT/HCPCS: 36415; 71010; 76705; 76770; 80048; 80053; 80076; 81003; 82550; 82553; 82570; 83605; 83735; 83930; 83935; 84100; 84300; 84484; 84550; 85025; 85027; 85610; 85730; 87040; 87045; 87177; 87209; 87427; 87493; 87899; 89190; 93005; 94640; 94760; 96360; 96361; 99285; J3475